=== PATIENT | female | born 1950 | race Caucasian/White ===

== ENCOUNTER → 2016-10-17 | Outpatient (CLI) | payer MEDICARE ==
[~2016-10-17] MED LIST: ACET-1757 PO; ALLO300T PO; ALPR-475 PO; ASPI-496 PO; ATOR10TA PO; AZIT500T PO; BUDE10.2 XX; CARV3.1212 PO; CARV3.122 PO; CEFU500T PO; CITA40TA5 PO; DIAZ2TAB PO; FURO40TA6 PO; FURO80TA3 PO; GABA600T2 PO; GABA800T2 PO; HUM100VI6 SC; IPRA4AER XX; LEVO750T26 PO; LEVO75TA5 PO; LISI2.5T PO; LISI5TAB7 PO; MECL-85 PO; METF500T4 PO; METO2.5T PO; METO25TA91 PO; MONT10TA6 PO; POTA20TA91 PO; PRED10TA PO; PRED20TA PO; SPIR25TA PO; [UNRECOGNIZED DRUG - REMARK]
== END | disposition home or self-care (01) ==
LOC: CVU 12:25
PROVIDERS: ATTEND Nurse Practitioner
DX: R60.0 Localized edema (principal); M79.605 Pain in left leg; E11.9 Type 2 diabetes mellitus without complications; Z86.69 Personal history of other diseases of the nervous system and sense organs
CPT/HCPCS: 93970

== ENCOUNTER 2016-11-01 16:07 | Inpatient (IN) | payer MEDICARE ==
[~2016-11-01] VITALS: Ht 170.2 cm; Wt 131.6 kg
[2016-11-01] MEDS ORDERED: SACU1TAB7 PO (16:31)
[2016-11-01] MEDS ORDERED: MORPHINE SULFATE 4 MG/ML, 1ML ONE ×2 (16:56→18:55)
[2016-11-01] MEDS ORDERED: METOCLOPRAMIDE 5 MG/ML, 2ML ONE (16:56)
[2016-11-01] MEDS ORDERED: METOCLOPRAMIDE 5 MG/ML, 2ML IVPush ONE (17:00)
[2016-11-01] MEDS ORDERED: morphine SULFATE 10 MG/ML, 1ML IVPush ONE ×2 (17:00→19:00)
[2016-11-01] MEDS ORDERED: OXYcodone/APAP 10/325MG TABLET ONE (18:55)
[2016-11-01] MEDS ORDERED: OXYcodone/APAP 10/325MG TABLET PO ONE (19:00)
[2016-11-01 19:21] LABS: BLOOD UREA NITROGEN 22 mg/dL (7-18)
[2016-11-01 19:28] LABS: IS PT STATUS REG ER OR PRE ER? YES
[2016-11-01] MEDS ORDERED: TRAZODONE 50MG TABLET PO PRN (20:00)
[2016-11-01] MEDS ORDERED: LABETALOL 5MG/ML, 20ML IV PRN (20:00)
[2016-11-01] MEDS ORDERED: ACETAMINOPHEN 325 MG TABLET PO PRN (20:00)
[2016-11-01] MEDS ORDERED: BISACODYL 10 MG SUPP PR PRN (20:00)
[2016-11-01] MEDS ORDERED: POLYETHYLENE GLYCOL 17 GM PACKET PO PRN (20:00)
[2016-11-01] MEDS ORDERED: DIAZEPAM 2 MG TABLET PO PRN (20:00)
[2016-11-01] MEDS ORDERED: DOCUSATE 100 MG CAPSULE PO PRN (20:00)
[2016-11-01] MEDS ORDERED: ENOXAPARIN 40 MG/0.4 ML ONE (20:24)
[2016-11-01] MEDS: ENOXAPARIN 40 MG/0.4 ML SQ SCH (20:26)
[2016-11-01 20:49] VITALS: BP 103/69
[2016-11-01] MEDS ORDERED: VALSARTAN PO SCH (21:00)
[2016-11-01] MEDS ORDERED: SACUBITRIL PO SCH (21:00)
[2016-11-01] MEDS: GABAPENTIN 400 MG CAPSULE PO SCH (21:36)
[2016-11-01] MEDS: ATORVASTATIN 10 MG TABLET PO SCH (21:36)
[2016-11-01] MEDS: INSULIN ASPART 100 UNITS/ML, PEN SQ-INSULIN SCH (22:38)
[2016-11-02] MEDS: ONDANSETRON 2MG/ML, 2ML IVPush PRN ×3 (00:36→14:40)
[2016-11-02] MEDS: HYDROcodone/APAP 5/325 TABLET PO PRN ×3 (00:37→20:30)
[2016-11-02 03:03] VITALS: BP 113/75
[2016-11-02] MEDS: CARVEDILOL 3.125 MG TABLET PO SCH ×2 (06:00→17:17)
[2016-11-02] MEDS: INSULIN ASPART 100 UNITS/ML, PEN SQ-INSULIN SCH ×4 (07:00→20:37)
[2016-11-02] MEDS: LEVOTHYROXINE 75 MCG TABLET PO SCH (07:37)
[2016-11-02 08:04] VITALS: BP 95/56
[2016-11-02] MEDS: ALLOPURINOL 300 MG TABLET PO SCH (08:19)
[2016-11-02] MEDS: SPIRONOLACTONE 25 MG TABLET PO SCH (08:19)
[2016-11-02] MEDS: ASPIRIN 81 MG TABLET EC PO SCH (08:20)
[2016-11-02] MEDS: GABAPENTIN 400 MG CAPSULE PO SCH ×3 (08:20→20:19)
[2016-11-02] MEDS ORDERED: DIAZEPAM 2 MG TABLET PO PRN (09:00)
[2016-11-02] MEDS: VALSARTAN PO SCH ×2 (09:00→20:48)
[2016-11-02] MEDS: SACUBITRIL PO SCH ×2 (09:00→20:48)
[2016-11-02] MEDS ORDERED: FUROSEMIDE 40 MG TABLET PO SCH (09:00)
[2016-11-02 12:27] VITALS: BP 112/70
[2016-11-02 18:43] VITALS: BP 106/67
[2016-11-02] MEDS: ENOXAPARIN 40 MG/0.4 ML SQ SCH (20:18)
[2016-11-02] MEDS: ATORVASTATIN 10 MG TABLET PO SCH (20:19)
[2016-11-03 03:42] VITALS: BP 124/74
[2016-11-03] MEDS: HYDROcodone/APAP 5/325 TABLET PO PRN ×3 (03:53→16:55)
[2016-11-03 05:07] LABS: BLOOD UREA NITROGEN 17 mg/dL (7-18)
[2016-11-03] MEDS: CARVEDILOL 3.125 MG TABLET PO SCH ×2 (05:22→18:07)
[2016-11-03] MEDS: LEVOTHYROXINE 75 MCG TABLET PO SCH (05:23)
[2016-11-03] MEDS: INSULIN ASPART 100 UNITS/ML, PEN SQ-INSULIN SCH ×4 (07:00→21:00)
[2016-11-03 07:08] VITALS: BP 116/74
[2016-11-03] MEDS: ALLOPURINOL 300 MG TABLET PO SCH (08:56)
[2016-11-03] MEDS: SPIRONOLACTONE 25 MG TABLET PO SCH (08:56)
[2016-11-03] MEDS: GABAPENTIN 400 MG CAPSULE PO SCH ×3 (08:56→22:18)
[2016-11-03] MEDS: ASPIRIN 81 MG TABLET EC PO SCH (08:56)
[2016-11-03] MEDS: VALSARTAN PO SCH ×2 (08:57→21:00)
[2016-11-03] MEDS: SACUBITRIL PO SCH ×2 (08:57→21:00)
[2016-11-03 13:35] VITALS: BP 115/83
[2016-11-03 20:25] VITALS: BP 128/74
[2016-11-03] MEDS: ENOXAPARIN 40 MG/0.4 ML SQ SCH (22:18)
[2016-11-03] MEDS: ATORVASTATIN 10 MG TABLET PO SCH (22:18)
[2016-11-04] MEDS: HYDROcodone/APAP 5/325 TABLET PO PRN (00:46)
[2016-11-04 02:55] VITALS: BP 112/68
[2016-11-04] MEDS: LEVOTHYROXINE 75 MCG TABLET PO SCH (05:41)
[2016-11-04] MEDS: CARVEDILOL 3.125 MG TABLET PO SCH ×2 (05:42→17:27)
[2016-11-04 06:00] VITALS: BP 107/70
[2016-11-04 06:47] VITALS: BP 112/74
[2016-11-04] MEDS: INSULIN ASPART 100 UNITS/ML, PEN SQ-INSULIN SCH ×3 (07:00→16:00)
[2016-11-04] MEDS: VALSARTAN PO SCH (08:34)
[2016-11-04] MEDS: SACUBITRIL PO SCH (08:34)
[2016-11-04] MEDS: GABAPENTIN 400 MG CAPSULE PO SCH ×2 (09:38→16:35)
[2016-11-04] MEDS: ALLOPURINOL 300 MG TABLET PO SCH (09:38)
[2016-11-04] MEDS: ASPIRIN 81 MG TABLET EC PO SCH (09:38)
[2016-11-04] MEDS: SPIRONOLACTONE 25 MG TABLET PO SCH (09:38)
[2016-11-04] MEDS ORDERED: OXYcodone IR 5MG TABLET PO PRN (13:00)
[2016-11-04 13:25] VITALS: BP 126/70
[2016-11-04] MEDS ORDERED: LEVOFLOXACIN/PMX 750MG/150ML 150 ML IV SCH (14:30)
[2016-11-04 14:43] LABS: PATH.CAST-FLAG NOT PRESENT; SPERM-FLAG NOT PRESENT; SRC-FLAG NOT PRESENT; XTAL-FLAG NOT PRESENT; YLC-FLAG NOT PRESENT
[2016-11-04] MEDS ORDERED: LEVO750T6 PO (15:04)
[2016-11-04] MEDS ORDERED: INSU100V8 SQ (15:12)
[2016-11-04] MEDS ORDERED: DIAZ2TAB3 PO (15:13)
[2016-11-04] MEDS ORDERED: LEVOFLOXACIN 750 MG TABLET PO SCH (15:30)
== END 2016-11-04 19:00 | DRG 543 ==
LOC: ED 17:50 → EDIP 19:40 → 3NW 20:40
PROVIDERS: ADMIT Internal Medicine; ATTEND Internal Medicine
DX: M80.021A Age-related osteoporosis with current pathological fracture, right humerus, initial encounter for fracture (principal); S42.201A Unspecified fracture of upper end of right humerus, initial encounter for closed fracture; I50.42 Chronic combined systolic (congestive) and diastolic (congestive) heart failure; Z68.42 Body mass index [BMI] 45.0-49.9, adult; E44.1 Mild protein-calorie malnutrition; N39.0 Urinary tract infection, site not specified; I25.10 Atherosclerotic heart disease of native coronary artery without angina pectoris; I44.7 Left bundle-branch block, unspecified; S53.104A Unspecified dislocation of right ulnohumeral joint, initial encounter; I11.0 Hypertensive heart disease with heart failure; E78.5 Hyperlipidemia, unspecified; M10.9 Gout, unspecified; F41.9 Anxiety disorder, unspecified; E03.9 Hypothyroidism, unspecified; E11.9 Type 2 diabetes mellitus without complications; J44.9 Chronic obstructive pulmonary disease, unspecified; E66.01 Morbid (severe) obesity due to excess calories; Z66 Do not resuscitate; W01.0XXA Fall on same level from slipping, tripping and stumbling without subsequent striking against object, initial encounter; Z79.4 Long term (current) use of insulin; Z88.0 Allergy status to penicillin; Z90.710 Acquired absence of both cervix and uterus; Y93.89 Activity, other specified; Y92.89 Other specified places as the place of occurrence of the external cause; Y99.8 Other external cause status; Z95.810 Presence of automatic (implantable) cardiac defibrillator; Z82.3 Family history of stroke; Z82.49 Family history of ischemic heart disease and other diseases of the circulatory system; Z87.891 Personal history of nicotine dependence; S51.001A Unspecified open wound of right elbow, initial encounter
CPT/HCPCS: 36415; 71010; 80048; 81001; 82040; 82962; 83036; 84484; 85025; 85610; 87077; 87086; 87186; 96374; 96375; 96376; J1650; J1815; J2405; J2270; J2765

== ENCOUNTER 2016-12-22 20:08 | Inpatient (IN) | payer MEDICARE ==
[~2016-12-22] VITALS: Ht 170.2 cm; Wt 130.0 kg
[~2016-12-22 20:08] MED LIST changes: +DIAZ2TAB3 PO; +INSU100V8 SQ; +LEVO750T6 PO; +SACU1TAB7 PO
[2016-12-22] MEDS ORDERED: SODIUM CHLORIDE 0.9% 1,000ML IVBOLUS ONE ×2 (20:30→21:30)
[2016-12-22] MEDS ORDERED: SODIUM CHLORIDE FLUSH 10ML SYR IVF ONE (20:30)
[2016-12-22 21:05] LABS: ASPARTATE AMINO TRANSFERASE 12 U/L (15-37); BLOOD UREA NITROGEN 89 mg/dL (7-18)
[2016-12-22] MEDS ORDERED: INSULIN REGULAR 100 UNITS/ML, 3ML VIAL IVPush ONE (21:30)
[2016-12-22] MEDS ORDERED: CALCIUM GLUCONATE 4.6 MEQ in SODIUM CHLORIDE 0.9% 50 ML IV ONE (21:30)
[2016-12-22] MEDS ORDERED: ALBUTEROL 0.5%, 20ML NPPB ONE (21:30)
[2016-12-22] MEDS ORDERED: DEXTROSE 50%, 50ML SYRINGE IVPush ONE (21:30)
[2016-12-22] MEDS ORDERED: CEFTRIAXONE PMX 2GM/50ML 50 ML ONE (21:31)
[2016-12-22] MEDS ORDERED: INSULIN SINGLE DOSE, ER SQ-INSULIN ONE (21:31)
[2016-12-22] MEDS ORDERED: DEXTROSE 50%, 50ML VIAL ONE (21:31)
[2016-12-22] MEDS ORDERED: ALBUTEROL 0.5%, 20ML ONE (21:38)
[2016-12-22] MEDS ORDERED: CEFTRIAXONE PMX 2GM/50ML 50 ML IVPB ONE (22:00)
[2016-12-22] MEDS ORDERED: NOREPINEPHRINE 4 MG in SODIUM CHLORIDE 0.9% 246 ML IV PRN (23:00)
[2016-12-23] MEDS ORDERED: DOCUSATE 100 MG CAPSULE PO PRN (02:30)
[2016-12-23] MEDS ORDERED: TRAZODONE 50MG TABLET PO PRN (02:30)
[2016-12-23] MEDS ORDERED: BISACODYL 10 MG SUPP PR PRN (02:30)
[2016-12-23] MEDS ORDERED: hydrALAzine 20 MG/ML, 1ML IVPush PRN (02:30)
[2016-12-23] MEDS ORDERED: POLYETHYLENE GLYCOL 17 GM PACKET PO PRN (02:30)
[2016-12-23] MEDS ORDERED: VASOPRESSIN 100 UNIT in SODIUM CHLORIDE 0.9% 495 ML IV PRN (03:00)
[2016-12-23] MEDS: HEPARIN 5,000 UNITS/ML, 1ML SQ SCH ×3 (03:04→18:21)
[2016-12-23 03:15] LABS: ASPARTATE AMINO TRANSFERASE 30 U/L (15-37); BLOOD UREA NITROGEN 90 mg/dL (7-18)
[2016-12-23 03:21] LABS: IS PT STATUS REG ER OR PRE ER? NO
[2016-12-23] MEDS ORDERED: INSULIN ASPART 100 UNITS/ML, PEN SQ-INSULIN ONE (03:30)
[2016-12-23] MEDS ORDERED: SODIUM CHLORIDE 0.9% 1,000ML IVBOLUS ONE ×2 (03:30→04:30)
[2016-12-23] MEDS ORDERED: METRONIDAZOLE PMX 500MG/100ML 100 ML IV SCH (03:30)
[2016-12-23] MEDS ORDERED: DEXTROSE 50%, 50ML SYRINGE IVPush ONE (03:30)
[2016-12-23] MEDS: NOREPINEPHRINE 8 MG in SODIUM CHLORIDE 0.9% 242 ML IV PRN ×4 (03:43→18:26)
[2016-12-23 04:00] VITALS: BP 122/106
[2016-12-23] MEDS ORDERED: INSULIN REGULAR 100 UNITS/ML, 3ML VIAL IVPush ONE (04:30)
[2016-12-23] MEDS: INSULIN ASPART 100 UNITS/ML, PEN SQ-INSULIN SCH ×4 (06:42→20:17)
[2016-12-23] MEDS: ACETAMINOPHEN 325 MG TABLET PO PRN ×2 (07:45→23:44)
[2016-12-23] MEDS: LEVOTHYROXINE 75 MCG TABLET PO SCH (07:45)
[2016-12-23 09:03] LABS: BLOOD UREA NITROGEN 79 mg/dL (7-18)
[2016-12-23 09:08] LABS: IS PT STATUS REG ER OR PRE ER? NO
[2016-12-23] MEDS: GABAPENTIN 400 MG CAPSULE PO SCH ×3 (10:05→21:04)
[2016-12-23] MEDS: MEROPENEM 500 MG in SODIUM CHLORIDE 0.9% 100 ML IV SCH ×2 (10:06→21:04)
[2016-12-23] MEDS: ALLOPURINOL 300 MG TABLET PO SCH (10:06)
[2016-12-23] MEDS: ASPIRIN 81 MG TABLET EC PO SCH (10:06)
[2016-12-23] MEDS: ATORVASTATIN 10 MG TABLET PO SCH (21:04)
[2016-12-24] MEDS: NOREPINEPHRINE 8 MG in SODIUM CHLORIDE 0.9% 242 ML IV PRN (01:30)
[2016-12-24] MEDS ORDERED: CEFTRIAXONE PMX 2GM/50ML 50 ML IVPB SCH (02:00)
[2016-12-24] MEDS: HEPARIN 5,000 UNITS/ML, 1ML SQ SCH ×3 (03:30→18:40)
[2016-12-24 04:00] VITALS: BP 119/56
[2016-12-24] MEDS: LEVOTHYROXINE 75 MCG TABLET PO SCH (05:00)
[2016-12-24 05:18] LABS: BLOOD UREA NITROGEN 58 mg/dL (7-18)
[2016-12-24 05:24] LABS: ASPARTATE AMINO TRANSFERASE 33 U/L (15-37)
[2016-12-24] MEDS: INSULIN ASPART 100 UNITS/ML, PEN SQ-INSULIN SCH ×4 (07:00→21:00)
[2016-12-24] MEDS: MEROPENEM 500 MG in SODIUM CHLORIDE 0.9% 100 ML IV SCH (08:24)
[2016-12-24] MEDS: ACETAMINOPHEN 325 MG TABLET PO PRN ×2 (08:25→17:12)
[2016-12-24] MEDS: GABAPENTIN 400 MG CAPSULE PO SCH ×3 (08:25→20:58)
[2016-12-24] MEDS: ASPIRIN 81 MG TABLET EC PO SCH (08:25)
[2016-12-24] MEDS: ALLOPURINOL 300 MG TABLET PO SCH (08:25)
[2016-12-24] MEDS: MEROPENEM 1 GM in SODIUM CHLORIDE 0.9% 100 ML IV SCH (15:55)
[2016-12-24] MEDS ORDERED: ONDANSETRON 2MG/ML, 2ML ONE (17:09)
[2016-12-24] MEDS ORDERED: ONDANSETRON 2MG/ML, 2ML IVPush PRN (17:30)
[2016-12-24] MEDS: ATORVASTATIN 10 MG TABLET PO SCH (20:58)
[2016-12-25] MEDS: ACETAMINOPHEN 325 MG TABLET PO PRN ×2 (00:13→06:29)
[2016-12-25] MEDS: HEPARIN 5,000 UNITS/ML, 1ML SQ SCH ×3 (02:08→20:52)
[2016-12-25] MEDS: MEROPENEM 1 GM in SODIUM CHLORIDE 0.9% 100 ML IV SCH ×2 (04:43→16:45)
[2016-12-25 05:17] VITALS: BP 118/84
[2016-12-25 06:05] LABS: ASPARTATE AMINO TRANSFERASE 43 U/L (15-37); BLOOD UREA NITROGEN 38 mg/dL (7-18)
[2016-12-25] MEDS: INSULIN ASPART 100 UNITS/ML, PEN SQ-INSULIN SCH ×4 (06:25→20:40)
[2016-12-25] MEDS: LEVOTHYROXINE 75 MCG TABLET PO SCH (06:29)
[2016-12-25] MEDS: GABAPENTIN 400 MG CAPSULE PO SCH ×3 (09:44→20:52)
[2016-12-25] MEDS: ASPIRIN 81 MG TABLET EC PO SCH (09:44)
[2016-12-25] MEDS: ALLOPURINOL 300 MG TABLET PO SCH (09:44)
[2016-12-25 16:46] VITALS: BP 114/72
[2016-12-25 17:40] VITALS: BP 120/76
[2016-12-25] MEDS: ATORVASTATIN 10 MG TABLET PO SCH (20:52)
[2016-12-25 22:15] VITALS: BP 104/63
[2016-12-26 02:00] VITALS: BP 100/64
[2016-12-26] MEDS: MEROPENEM 1 GM in SODIUM CHLORIDE 0.9% 100 ML IV SCH ×2 (05:18→16:00)
[2016-12-26] MEDS: HEPARIN 5,000 UNITS/ML, 1ML SQ SCH ×3 (05:19→22:06)
[2016-12-26] MEDS: LEVOTHYROXINE 75 MCG TABLET PO SCH (05:19)
[2016-12-26 05:47] LABS: ASPARTATE AMINO TRANSFERASE 66 U/L (15-37); BLOOD UREA NITROGEN 30 mg/dL (7-18)
[2016-12-26] MEDS: INSULIN ASPART 100 UNITS/ML, PEN SQ-INSULIN SCH ×4 (07:00→20:29)
[2016-12-26 08:33] VITALS: BP 110/72
[2016-12-26] MEDS: ASPIRIN 81 MG TABLET EC PO SCH (08:33)
[2016-12-26] MEDS: ALLOPURINOL 300 MG TABLET PO SCH (08:33)
[2016-12-26] MEDS: GABAPENTIN 400 MG CAPSULE PO SCH ×3 (08:33→22:07)
[2016-12-26 13:20] VITALS: BP 98/47
[2016-12-26] MEDS ORDERED: MEROPENEM 1 GM in SODIUM CHLORIDE 0.9% 100 ML IV SCH (16:00)
[2016-12-26 20:00] VITALS: BP 109/75
[2016-12-26] MEDS: ACETAMINOPHEN 325 MG TABLET PO PRN (20:49)
[2016-12-26] MEDS: ATORVASTATIN 10 MG TABLET PO SCH (22:07)
[2016-12-27] MEDS: MEROPENEM 1 GM in SODIUM CHLORIDE 0.9% 100 ML IV SCH ×3 (00:32→16:04)
[2016-12-27 02:00] VITALS: BP 111/70
[2016-12-27] MEDS: ACETAMINOPHEN 325 MG TABLET PO PRN ×4 (04:37→22:40)
[2016-12-27] MEDS: HEPARIN 5,000 UNITS/ML, 1ML SQ SCH ×2 (04:38→16:04)
[2016-12-27] MEDS: LEVOTHYROXINE 75 MCG TABLET PO SCH (06:42)
[2016-12-27 06:57] LABS: BLOOD UREA NITROGEN 24 mg/dL (7-18)
[2016-12-27] MEDS: INSULIN ASPART 100 UNITS/ML, PEN SQ-INSULIN SCH ×4 (07:00→20:14)
[2016-12-27 07:01] LABS: ASPARTATE AMINO TRANSFERASE 59 U/L (15-37)
[2016-12-27] MEDS: ASPIRIN 81 MG TABLET EC PO SCH (08:39)
[2016-12-27] MEDS: ALLOPURINOL 300 MG TABLET PO SCH (08:39)
[2016-12-27] MEDS: GABAPENTIN 400 MG CAPSULE PO SCH ×3 (08:39→20:28)
[2016-12-27 13:07] VITALS: BP 125/78
[2016-12-27 20:00] VITALS: BP 102/70
[2016-12-27] MEDS: ATORVASTATIN 10 MG TABLET PO SCH (20:28)
[2016-12-28] MEDS: MEROPENEM 1 GM in SODIUM CHLORIDE 0.9% 100 ML IV SCH ×3 (00:53→17:47)
[2016-12-28 02:00] VITALS: BP 119/79
[2016-12-28] MEDS: LEVOTHYROXINE 75 MCG TABLET PO SCH (06:06)
[2016-12-28] MEDS: ACETAMINOPHEN 325 MG TABLET PO PRN ×3 (06:14→21:23)
[2016-12-28] MEDS: INSULIN ASPART 100 UNITS/ML, PEN SQ-INSULIN SCH ×4 (07:00→20:37)
[2016-12-28 07:08] VITALS: BP 105/67
[2016-12-28] MEDS: GABAPENTIN 400 MG CAPSULE PO SCH ×3 (09:34→21:23)
[2016-12-28] MEDS: ALLOPURINOL 300 MG TABLET PO SCH (09:34)
[2016-12-28] MEDS: HEPARIN 5,000 UNITS/ML, 1ML SQ SCH ×3 (09:34→17:47)
[2016-12-28] MEDS: ASPIRIN 81 MG TABLET EC PO SCH (09:34)
[2016-12-28 13:23] VITALS: BP 123/64
[2016-12-28 20:13] VITALS: BP 108/84
[2016-12-28] MEDS: ATORVASTATIN 10 MG TABLET PO SCH (21:23)
[2016-12-29] MEDS: MEROPENEM 1 GM in SODIUM CHLORIDE 0.9% 100 ML IV SCH ×3 (00:38→16:37)
[2016-12-29 02:00] VITALS: BP 113/69
[2016-12-29 06:20] LABS: BLOOD UREA NITROGEN 12 mg/dL (7-18)
[2016-12-29] MEDS: LEVOTHYROXINE 75 MCG TABLET PO SCH (06:35)
[2016-12-29] MEDS: INSULIN ASPART 100 UNITS/ML, PEN SQ-INSULIN SCH ×4 (07:00→21:00)
[2016-12-29 07:25] VITALS: BP 117/69
[2016-12-29] MEDS: HEPARIN 5,000 UNITS/ML, 1ML SQ SCH ×3 (08:22→16:38)
[2016-12-29] MEDS: ASPIRIN 81 MG TABLET EC PO SCH (08:23)
[2016-12-29] MEDS: GABAPENTIN 400 MG CAPSULE PO SCH ×3 (08:23→21:16)
[2016-12-29] MEDS: ALLOPURINOL 300 MG TABLET PO SCH (08:23)
[2016-12-29] MEDS ORDERED: POTASSIUM CHLORIDE 20 MEQ TAB.ER.PRT PO ONE (10:30)
[2016-12-29 13:13] VITALS: BP 144/93
[2016-12-29 19:47] VITALS: BP 112/80
[2016-12-29] MEDS: ATORVASTATIN 10 MG TABLET PO SCH (21:16)
[2016-12-29] MEDS: ACETAMINOPHEN 325 MG TABLET PO PRN (21:16)
[2016-12-30] MEDS: HEPARIN 5,000 UNITS/ML, 1ML SQ SCH ×3 (00:38→16:00)
[2016-12-30] MEDS: MEROPENEM 1 GM in SODIUM CHLORIDE 0.9% 100 ML IV SCH ×3 (00:38→17:07)
[2016-12-30 01:50] VITALS: BP 106/69
[2016-12-30] MEDS: LEVOTHYROXINE 75 MCG TABLET PO SCH (04:32)
[2016-12-30] MEDS: ACETAMINOPHEN 325 MG TABLET PO PRN ×2 (04:38→12:16)
[2016-12-30 05:32] LABS: BLOOD UREA NITROGEN 10 mg/dL (7-18)
[2016-12-30] MEDS: INSULIN ASPART 100 UNITS/ML, PEN SQ-INSULIN SCH ×3 (07:00→16:00)
[2016-12-30 07:16] VITALS: BP 108/71
[2016-12-30] MEDS: ASPIRIN 81 MG TABLET EC PO SCH (08:08)
[2016-12-30] MEDS: ALLOPURINOL 300 MG TABLET PO SCH (08:08)
[2016-12-30] MEDS: GABAPENTIN 400 MG CAPSULE PO SCH ×2 (08:08→17:07)
[2016-12-30 15:10] VITALS: BP 113/76
[2016-12-30] MEDS ORDERED: FURO20TA3 PO (16:51)
[2016-12-30] MEDS ORDERED: INSU100C5 SQ-INSULIN (16:52)
[2016-12-30] MEDS ORDERED: HEPA100D36 SQ (16:55)
[2016-12-30] MEDS ORDERED: MERO1PIG IV (16:57)
[2016-12-30] MEDS ORDERED: ACET-1757 PO (16:58)
[2016-12-30] MEDS ORDERED: BISA10SU2 PR (17:00)
[2016-12-30] MEDS ORDERED: DOCU100C8 PO (17:01)
[2016-12-30] MEDS ORDERED: ONDA4TAB13 SL (17:02)
[2016-12-30] MEDS ORDERED: POLY17PO5 PO (17:03)
== END 2016-12-30 18:00 | DRG 871 ==
LOC: ED 21:18 → EDIP 12-23 00:06 → ICU 12-23 01:37 → 4EST 12-25 17:28
PROVIDERS: ADMIT Internal Medicine; ATTEND Internal Medicine
PROC: 0T9B70Z Drainage of Bladder with Drainage Device, Via Natural or Artificial Opening (ICD-10-PCS; 2016-12-22)
PROC: 02HV33Z Insertion of Infusion Device into Superior Vena Cava, Percutaneous Approach (ICD-10-PCS; principal; 2016-12-30)
PROC: B548ZZA Ultrasonography of Superior Vena Cava, Guidance (ICD-10-PCS; 2016-12-30)
DX: A41.59 Other Gram-negative sepsis (principal); R65.21 Severe sepsis with septic shock; G92 Toxic encephalopathy; J96.21 Acute and chronic respiratory failure with hypoxia; I50.43 Acute on chronic combined systolic (congestive) and diastolic (congestive) heart failure; N17.0 Acute kidney failure with tubular necrosis; E87.1 Hypo-osmolality and hyponatremia; N12 Tubulo-interstitial nephritis, not specified as acute or chronic; S42.201A Unspecified fracture of upper end of right humerus, initial encounter for closed fracture; E87.5 Hyperkalemia; E03.9 Hypothyroidism, unspecified; E11.9 Type 2 diabetes mellitus without complications; D64.9 Anemia, unspecified; E78.5 Hyperlipidemia, unspecified; H54.7 Unspecified visual loss; I11.0 Hypertensive heart disease with heart failure; I25.10 Atherosclerotic heart disease of native coronary artery without angina pectoris; J44.9 Chronic obstructive pulmonary disease, unspecified; M10.9 Gout, unspecified; W01.0XXA Fall on same level from slipping, tripping and stumbling without subsequent striking against object, initial encounter; Y93.89 Activity, other specified; Y92.89 Other specified places as the place of occurrence of the external cause; Z79.4 Long term (current) use of insulin; Z79.899 Other long term (current) drug therapy; Z82.3 Family history of stroke; Z87.440 Personal history of urinary (tract) infections; Z87.891 Personal history of nicotine dependence; Z95.810 Presence of automatic (implantable) cardiac defibrillator; Z90.49 Acquired absence of other specified parts of digestive tract; Z90.710 Acquired absence of both cervix and uterus; Z98.49 Cataract extraction status, unspecified eye; Z88.0 Allergy status to penicillin; Z79.82 Long term (current) use of aspirin; Z82.61 Family history of arthritis; Z82.49 Family history of ischemic heart disease and other diseases of the circulatory system; R42 Dizziness and giddiness
CPT/HCPCS: 36415; 36556; 36569; 70450; 71010; 76937; 77001; 80048; 80053; 81001; 82436; 82570; 82962; 83036; 83605; 83735; 83880; 84133; 84145; 84300; 84439; 84443; 84484; 85025; 85610; 85730; 87040; 87077; 87081; 87086; 87186; 87324; 93005; 94644; 96361; 96365; 96368; 96375; J0610; J0696; J1644; J1815; J2185; J2405; C1751; J7030; J7040; J7050

== ENCOUNTER 2017-01-18 11:10 | Inpatient (IN) | payer MEDICARE ==
[~2017-01-18] VITALS: Ht 170.2 cm; Wt 129.9 kg
[~2017-01-18 11:10] MED LIST changes: +BISA10SU2 PR; +DOCU100C8 PO; +FURO20TA3 PO; +HEPA100D36 SQ; +INSU100C5 SQ-INSULIN; +MERO1PIG IV; +ONDA4TAB13 SL; +POLY17PO5 PO
[2017-01-18] MEDS ORDERED: METF500T4 PO (11:45)
[2017-01-18] MEDS ORDERED: HYDR-3240 PO (11:45)
[2017-01-18 12:03] LABS: ASPARTATE AMINO TRANSFERASE 20 U/L (15-37); BLOOD UREA NITROGEN 7 mg/dL (7-18)
[2017-01-18 12:10] LABS: IS PT STATUS REG ER OR PRE ER? YES
[2017-01-18] MEDS ORDERED: INSULIN DETEMIR 100 UNITS/ML, PEN SQ-INSULIN SCH (14:00)
[2017-01-18 14:26] VITALS: BP 117/77
[2017-01-18] MEDS ORDERED: ONDANSETRON 2MG/ML, 2ML IVPush PRN (14:30)
[2017-01-18] MEDS ORDERED: HYDROcodone/APAP 5/325 TABLET PO PRN (14:30)
[2017-01-18] MEDS ORDERED: morphine SULFATE 10 MG/ML, 1ML IVPush PRN (14:30)
[2017-01-18] MEDS ORDERED: ACETAMINOPHEN 325 MG TABLET PO PRN (14:30)
[2017-01-18] MEDS ORDERED: hydrALAzine 20 MG/ML, 1ML IVPush PRN (14:30)
[2017-01-18] MEDS: INSULIN ASPART 100 UNITS/ML, PEN SQ-INSULIN SCH ×2 (15:19→21:00)
[2017-01-18] MEDS: POTASSIUM CHLORIDE 20 MEQ TAB.ER.PRT PO SCH ×3 (15:25→21:08)
[2017-01-18] MEDS: HYDROcodone/APAP 5/325 TABLET PO PRN (16:50)
[2017-01-18] MEDS: GABAPENTIN 400 MG CAPSULE PO SCH ×2 (16:50→21:08)
[2017-01-18] MEDS: CEFTRIAXONE PMX 2GM/50ML 50 ML IV SCH (16:50)
[2017-01-18 17:18] LABS: PATH.CAST-FLAG NOT PRESENT; SPERM-FLAG NOT PRESENT; SRC-FLAG NOT PRESENT; XTAL-FLAG NOT PRESENT; YLC-FLAG NOT PRESENT
[2017-01-18 18:59] VITALS: BP 126/70
[2017-01-18] MEDS: ATORVASTATIN 10 MG TABLET PO SCH (21:08)
[2017-01-18] MEDS: DOCUSATE 100 MG CAPSULE PO SCH (21:08)
[2017-01-18] MEDS: INSULIN DETEMIR 100 UNITS/ML, PEN SQ-INSULIN SCH (21:10)
[2017-01-19 02:02] VITALS: BP 125/72
[2017-01-19 06:23] LABS: ASPARTATE AMINO TRANSFERASE 17 U/L (15-37); BLOOD UREA NITROGEN 9 mg/dL (7-18)
[2017-01-19] MEDS: LEVOTHYROXINE 88 MCG TABLET PO SCH (06:27)
[2017-01-19] MEDS: INSULIN ASPART 100 UNITS/ML, PEN SQ-INSULIN SCH ×4 (07:00→20:07)
[2017-01-19 08:00] VITALS: BP 108/73
[2017-01-19] MEDS: BISACODYL 10 MG SUPP PR SCH (09:00)
[2017-01-19] MEDS: POLYETHYLENE GLYCOL 17 GM PACKET PO SCH (09:00)
[2017-01-19] MEDS: ASPIRIN 81 MG TABLET EC PO SCH (09:29)
[2017-01-19] MEDS: FUROSEMIDE 20 MG TABLET PO SCH (09:30)
[2017-01-19] MEDS: POTASSIUM CHLORIDE 20 MEQ TAB.ER.PRT PO SCH ×3 (09:30→13:47)
[2017-01-19] MEDS: DOCUSATE 100 MG CAPSULE PO SCH ×2 (09:30→20:08)
[2017-01-19] MEDS: GABAPENTIN 400 MG CAPSULE PO SCH ×3 (09:30→20:08)
[2017-01-19] MEDS: ENOXAPARIN 40 MG/0.4 ML SQ SCH (09:30)
[2017-01-19] MEDS: ALLOPURINOL 300 MG TABLET PO SCH (09:30)
[2017-01-19] MEDS: HYDROcodone/APAP 5/325 TABLET PO PRN (09:40)
[2017-01-19 10:51] VITALS: BP 121/71
[2017-01-19 16:13] VITALS: BP 120/75
[2017-01-19] MEDS: CEFTRIAXONE PMX 2GM/50ML 50 ML IV SCH (17:18)
[2017-01-19 19:11] VITALS: BP 120/75
[2017-01-19] MEDS: ATORVASTATIN 10 MG TABLET PO SCH (20:08)
[2017-01-19] MEDS: INSULIN DETEMIR 100 UNITS/ML, PEN SQ-INSULIN SCH (20:09)
[2017-01-20 02:31] VITALS: BP 119/75
[2017-01-20 05:52] LABS: BLOOD UREA NITROGEN 10 mg/dL (7-18)
[2017-01-20 05:57] LABS: ASPARTATE AMINO TRANSFERASE 18 U/L (15-37)
[2017-01-20] MEDS: INSULIN ASPART 100 UNITS/ML, PEN SQ-INSULIN SCH ×4 (07:00→22:04)
[2017-01-20 07:28] VITALS: BP 110/71
[2017-01-20] MEDS: LEVOTHYROXINE 88 MCG TABLET PO SCH (07:35)
[2017-01-20] MEDS: ALLOPURINOL 300 MG TABLET PO SCH (08:13)
[2017-01-20] MEDS: ASPIRIN 81 MG TABLET EC PO SCH (08:13)
[2017-01-20] MEDS: FUROSEMIDE 20 MG TABLET PO SCH (08:13)
[2017-01-20] MEDS: GABAPENTIN 400 MG CAPSULE PO SCH ×3 (08:13→22:04)
[2017-01-20] MEDS: BISACODYL 10 MG SUPP PR SCH (08:14)
[2017-01-20] MEDS: ENOXAPARIN 40 MG/0.4 ML SQ SCH (08:14)
[2017-01-20] MEDS: POLYETHYLENE GLYCOL 17 GM PACKET PO SCH (08:14)
[2017-01-20] MEDS: DOCUSATE 100 MG CAPSULE PO SCH ×2 (08:22→22:03)
[2017-01-20 12:48] VITALS: BP 120/73
[2017-01-20] MEDS: GUAIFENESIN ER 600 MG TABLET PO SCH ×2 (16:27→22:04)
[2017-01-20] MEDS: CEFTRIAXONE PMX 2GM/50ML 50 ML IV SCH (16:28)
[2017-01-20] MEDS ORDERED: MAGNESIUM SULFATE PMX 2GM/50ML 50 ML IV ONE (16:30)
[2017-01-20 19:08] VITALS: BP 145/87
[2017-01-20] MEDS: ATORVASTATIN 10 MG TABLET PO SCH (22:04)
[2017-01-20] MEDS: INSULIN DETEMIR 100 UNITS/ML, PEN SQ-INSULIN SCH (22:05)
[2017-01-21 01:10] VITALS: BP 141/82
[2017-01-21] MEDS: LEVOTHYROXINE 88 MCG TABLET PO SCH (05:38)
[2017-01-21 06:29] LABS: BLOOD UREA NITROGEN 7 mg/dL (7-18)
[2017-01-21 06:40] VITALS: BP 118/73
[2017-01-21] MEDS: INSULIN ASPART 100 UNITS/ML, PEN SQ-INSULIN SCH ×4 (08:36→21:02)
[2017-01-21] MEDS: GUAIFENESIN ER 600 MG TABLET PO SCH ×2 (08:37→20:53)
[2017-01-21] MEDS: POLYETHYLENE GLYCOL 17 GM PACKET PO SCH (08:37)
[2017-01-21] MEDS: ALLOPURINOL 300 MG TABLET PO SCH (08:38)
[2017-01-21] MEDS: GABAPENTIN 400 MG CAPSULE PO SCH ×3 (08:38→20:53)
[2017-01-21] MEDS: ENOXAPARIN 40 MG/0.4 ML SQ SCH (08:38)
[2017-01-21] MEDS: BISACODYL 10 MG SUPP PR SCH (08:38)
[2017-01-21] MEDS: DOCUSATE 100 MG CAPSULE PO SCH ×2 (08:38→20:53)
[2017-01-21] MEDS: ASPIRIN 81 MG TABLET EC PO SCH (08:38)
[2017-01-21] MEDS: FUROSEMIDE 20 MG TABLET PO SCH (08:38)
[2017-01-21 13:35] VITALS: BP 103/60
[2017-01-21] MEDS: CEFTRIAXONE PMX 2GM/50ML 50 ML IV SCH (16:35)
[2017-01-21 20:09] VITALS: BP 109/52
[2017-01-21] MEDS: ATORVASTATIN 10 MG TABLET PO SCH (20:53)
[2017-01-21] MEDS: INSULIN DETEMIR 100 UNITS/ML, PEN SQ-INSULIN SCH (21:03)
[2017-01-21] MEDS: NYSTATIN TOPICAL POWDER 15GM TP SCH (21:26)
[2017-01-22 02:27] VITALS: BP 107/67
[2017-01-22] MEDS: LEVOTHYROXINE 88 MCG TABLET PO SCH (06:16)
[2017-01-22 07:53] VITALS: BP 138/77
[2017-01-22] MEDS: INSULIN ASPART 100 UNITS/ML, PEN SQ-INSULIN SCH ×4 (08:00→21:10)
[2017-01-22] MEDS: GUAIFENESIN ER 600 MG TABLET PO SCH ×2 (08:22→21:06)
[2017-01-22] MEDS: ASPIRIN 81 MG TABLET EC PO SCH (08:22)
[2017-01-22] MEDS: FUROSEMIDE 20 MG TABLET PO SCH (08:23)
[2017-01-22] MEDS: POLYETHYLENE GLYCOL 17 GM PACKET PO SCH (08:23)
[2017-01-22] MEDS: GABAPENTIN 400 MG CAPSULE PO SCH ×3 (08:23→21:06)
[2017-01-22] MEDS: ALLOPURINOL 300 MG TABLET PO SCH (08:24)
[2017-01-22] MEDS: DOCUSATE 100 MG CAPSULE PO SCH ×2 (08:24→21:06)
[2017-01-22] MEDS: ENOXAPARIN 40 MG/0.4 ML SQ SCH (08:24)
[2017-01-22] MEDS: BISACODYL 10 MG SUPP PR SCH (09:00)
[2017-01-22] MEDS: NYSTATIN TOPICAL POWDER 15GM TP SCH ×2 (11:23→21:10)
[2017-01-22 13:43] VITALS: BP 110/75
[2017-01-22] MEDS: CEFTRIAXONE PMX 2GM/50ML 50 ML IV SCH (16:21)
[2017-01-22 20:20] VITALS: BP 115/77
[2017-01-22] MEDS: ATORVASTATIN 10 MG TABLET PO SCH (21:06)
[2017-01-22] MEDS: MAGNESIUM OXIDE 400 MG TABLET PO SCH (21:06)
[2017-01-22] MEDS: INSULIN DETEMIR 100 UNITS/ML, PEN SQ-INSULIN SCH (21:08)
[2017-01-23 02:30] VITALS: BP 128/78
[2017-01-23] MEDS: LEVOTHYROXINE 88 MCG TABLET PO SCH (05:58)
[2017-01-23 07:31] VITALS: BP 124/73
[2017-01-23] MEDS: DOCUSATE 100 MG CAPSULE PO SCH (08:55)
[2017-01-23] MEDS: POLYETHYLENE GLYCOL 17 GM PACKET PO SCH (08:55)
[2017-01-23] MEDS: BISACODYL 10 MG SUPP PR SCH (08:55)
[2017-01-23] MEDS: ALLOPURINOL 300 MG TABLET PO SCH (08:59)
[2017-01-23] MEDS: GABAPENTIN 400 MG CAPSULE PO SCH (09:00)
[2017-01-23] MEDS: FUROSEMIDE 20 MG TABLET PO SCH (09:00)
[2017-01-23] MEDS: NYSTATIN TOPICAL POWDER 15GM TP SCH (09:00)
[2017-01-23] MEDS: INSULIN ASPART 100 UNITS/ML, PEN SQ-INSULIN SCH (09:00)
[2017-01-23] MEDS: ASPIRIN 81 MG TABLET EC PO SCH (09:00)
[2017-01-23] MEDS: GUAIFENESIN ER 600 MG TABLET PO SCH (09:00)
[2017-01-23] MEDS: MAGNESIUM OXIDE 400 MG TABLET PO SCH (09:00)
[2017-01-23] MEDS: ENOXAPARIN 40 MG/0.4 ML SQ SCH (09:00)
[2017-01-23] MEDS ORDERED: CEFD300C37 PO (10:26)
[2017-01-23] MEDS ORDERED: MAGN400T26 PO (10:26)
[2017-01-23] MEDS ORDERED: NYST60PO TP (10:26)
[2017-01-23] MEDS ORDERED: POTA20PA PO (10:39)
[2017-01-23] MEDS ORDERED: LISI5TAB7 PO (10:59)
[2017-01-23] MEDS ORDERED: METO25TA91 PO (11:33)
[2017-01-23] MEDS ORDERED: SPIR25TA PO (11:33)
== END 2017-01-23 11:55 | disposition home health service (06) | DRG 872 ==
LOC: ED 12:10 → EDIP 12:32 → 5SO 14:20 → DCLOUNGE 01-23 11:01
PROVIDERS: ADMIT Hospitalist; ATTEND Internal Medicine
PROC: 4A02X4Z Measurement of Cardiac Electrical Activity, External Approach (ICD-10-PCS; principal; 2017-01-18)
DX: A41.9 Sepsis, unspecified organism (principal); I47.1 Supraventricular tachycardia; N39.0 Urinary tract infection, site not specified; I50.42 Chronic combined systolic (congestive) and diastolic (congestive) heart failure; I13.0 Hypertensive heart and chronic kidney disease with heart failure and stage 1 through stage 4 chronic kidney disease, or unspecified chronic kidney disease; E87.2 Acidosis; J96.11 Chronic respiratory failure with hypoxia; Z68.41 Body mass index [BMI] 40.0-44.9, adult; E87.6 Hypokalemia; E11.22 Type 2 diabetes mellitus with diabetic chronic kidney disease; E03.9 Hypothyroidism, unspecified; E66.01 Morbid (severe) obesity due to excess calories; E83.42 Hypomagnesemia; H54.42 Blindness, left eye, normal vision right eye; I25.10 Atherosclerotic heart disease of native coronary artery without angina pectoris; I34.0 Nonrheumatic mitral (valve) insufficiency; B96.1 Klebsiella pneumoniae [K. pneumoniae] as the cause of diseases classified elsewhere; J44.9 Chronic obstructive pulmonary disease, unspecified; M10.9 Gout, unspecified; K59.00 Constipation, unspecified; N18.2 Chronic kidney disease, stage 2 (mild); Z87.440 Personal history of urinary (tract) infections; Z95.810 Presence of automatic (implantable) cardiac defibrillator; Z99.81 Dependence on supplemental oxygen; Z90.49 Acquired absence of other specified parts of digestive tract; Z90.710 Acquired absence of both cervix and uterus; Z90.721 Acquired absence of ovaries, unilateral; Z79.84 Long term (current) use of oral hypoglycemic drugs; Z79.82 Long term (current) use of aspirin; Z79.899 Other long term (current) drug therapy; Z88.0 Allergy status to penicillin; Z87.891 Personal history of nicotine dependence; Z82.5 Family history of asthma and other chronic lower respiratory diseases; Z82.49 Family history of ischemic heart disease and other diseases of the circulatory system; Z83.3 Family history of diabetes mellitus; Z90.89 Acquired absence of other organs
CPT/HCPCS: 36415; 71010; 80048; 80053; 81001; 82962; 83036; 83605; 83735; 84100; 84443; 84484; 85025; 85610; 85651; 87040; 87077; 87086; 87186; 93005; 99285; J0696; J1650; J1815; J3475

== ENCOUNTER → 2017-02-20 | Outpatient (CLI) | payer MEDICARE ==
[~2017-02-20] MED LIST changes: +CEFD300C37 PO; +HYDR-3240 PO; +MAGN400T26 PO; +NYST60PO TP; +OMNIPAQUE 350 MG/ML, 100ML BOTTLE ONE; +POTA20PA PO
== END | disposition home or self-care (01) ==
LOC: CFH 10:39
PROVIDERS: ATTEND Physician Assistant Surgical
DX: S42.461D Displaced fracture of medial condyle of right humerus, subsequent encounter for fracture with routine healing (principal); K44.9 Diaphragmatic hernia without obstruction or gangrene; N28.1 Cyst of kidney, acquired; Z85.3 Personal history of malignant neoplasm of breast; X58.XXXD Exposure to other specified factors, subsequent encounter
CPT/HCPCS: 71260; 73200; 74160; Q9967

== ENCOUNTER 2017-02-23 11:52 | Emergency (ER) | payer MEDICARE ==
[~2017-02-23] VITALS: Ht 170.2 cm; Wt 115.0 kg
[~2017-02-23 11:52] MED LIST changes: -OMNIPAQUE 350 MG/ML, 100ML BOTTLE ONE
[2017-02-23] MEDS ORDERED: SODIUM CHLORIDE 0.9% 1,000ML IVBOLUS ONE (13:00)
[2017-02-23] MEDS ORDERED: MORPHINE SULFATE 4 MG/ML, 1ML IVPush PRN (13:00)
[2017-02-23] MEDS ORDERED: ONDANSETRON 2MG/ML, 2ML IVPush ONE (13:00)
[2017-02-23] MEDS ORDERED: SODIUM CHLORIDE FLUSH 10ML SYR IVF ONE (13:00)
[2017-02-23 13:47] LABS: PATH.CAST-FLAG NOT PRESENT; SPERM-FLAG NOT PRESENT; SRC-FLAG NOT PRESENT; XTAL-FLAG NOT PRESENT; YLC-FLAG NOT PRESENT
[2017-02-23 14:25] LABS: HEMATOCRIT 35.8 % (34.6-47.8); HEMOGLOBIN 11.4 g/dL (11.7-16.4); WHITE BLOOD COUNT 9.2 x10^3/uL (3.4-10)
[2017-02-23 14:27] VITALS: BP 108/46
[2017-02-23 14:35] LABS: BLOOD UREA NITROGEN 21 mg/dL (7-18)
== END 2017-02-23 15:05 | disposition home or self-care (01) ==
LOC: ED 13:22
DX: N30.00 Acute cystitis without hematuria (principal); I13.0 Hypertensive heart and chronic kidney disease with heart failure and stage 1 through stage 4 chronic kidney disease, or unspecified chronic kidney disease; E11.22 Type 2 diabetes mellitus with diabetic chronic kidney disease; N18.2 Chronic kidney disease, stage 2 (mild); I50.9 Heart failure, unspecified; J44.9 Chronic obstructive pulmonary disease, unspecified
CPT/HCPCS: 36415; 80048; 81001; 82040; 85025; 99284

== ENCOUNTER → 2017-04-04 | Outpatient (CLI) | payer MEDICARE ==
[~2017-04-04] MED LIST changes: +DOCU100C33 PO; -DOCU100C8 PO
== END | disposition home or self-care (01) ==
LOC: CFH 12:54
PROVIDERS: ATTEND Nurse Practitioner
DX: Z13.820 Encounter for screening for osteoporosis (principal); N95.8 Other specified menopausal and perimenopausal disorders; M89.9 Disorder of bone, unspecified
CPT/HCPCS: 77080

== ENCOUNTER 2017-05-30 09:06 | Emergency (ER) | payer MEDICARE ==
[~2017-05-30] VITALS: Ht 170.2 cm; Wt 117.0 kg
[2017-05-30] MEDS ORDERED: ALBUTEROL/IPRATROPIUM 2.5MG/0.5MG, 3 ML NPPB ONE (09:30)
[2017-05-30] MEDS ORDERED: methylPREDNISolone SOD SUCC 125 MG/2 ML IVP ONE (09:30)
[2017-05-30] MEDS ORDERED: SODIUM CHLORIDE FLUSH 10ML SYR IVF ONE (09:30)
[2017-05-30] MEDS ORDERED: ALBUTEROL/IPRATROPIUM 2.5MG/0.5MG, 3 ML ONE (09:32)
[2017-05-30] MEDS ORDERED: methylPREDNISolone SOD SUCC 125 MG/2 ML ONE (09:49)
[2017-05-30 09:53] LABS: HEMATOCRIT 35.6 % (34.6-47.8); HEMOGLOBIN 11.5 g/dL (11.7-16.4); WHITE BLOOD COUNT 9.8 x10^3/uL (3.4-10)
[2017-05-30 10:04] LABS: ASPARTATE AMINO TRANSFERASE 9 U/L (15-37); BLOOD UREA NITROGEN 15 mg/dL (7-18)
[2017-05-30 10:14] LABS: IS PT STATUS REG ER OR PRE ER? YES
[2017-05-30] MEDS ORDERED: OMNIPAQUE 350 MG/ML, 100ML BOTTLE ONE (11:37)
[2017-05-30 12:27] VITALS: BP 120/70
[2017-05-30 12:32] LABS: RAPID INFLUENZA A Negative (Negative); RAPID INFLUENZA B Negative (Negative)
== END 2017-05-30 12:29 | disposition home or self-care (01) ==
LOC: ED 10:18
DX: J44.1 Chronic obstructive pulmonary disease with (acute) exacerbation (principal); J20.9 Acute bronchitis, unspecified; I11.0 Hypertensive heart disease with heart failure; I50.9 Heart failure, unspecified; E11.9 Type 2 diabetes mellitus without complications; Z90.710 Acquired absence of both cervix and uterus; Z87.891 Personal history of nicotine dependence
CPT/HCPCS: 36415; 71010; 71275; 80053; 83605; 83880; 84484; 85025; 85379; 85610; 85730; 87040; 87400; 93005; 94640; 96374; 99285; J2930; Q9967; J7620

== ENCOUNTER 2017-06-01 02:54 | Inpatient (IN) | payer MEDICARE ==
[~2017-06-01] VITALS: Ht 170.2 cm; Wt 121.5 kg
[2017-06-01] MEDS ORDERED: ALBUTEROL/IPRATROPIUM 2.5MG/0.5MG, 3 ML NPPB SCH (03:30)
[2017-06-01] MEDS ORDERED: ALBUTEROL/IPRATROPIUM 2.5MG/0.5MG, 3 ML ONE (03:47)
[2017-06-01 04:07] LABS: HEMATOCRIT 34.9 % (34.6-47.8); HEMOGLOBIN 11.2 g/dL (11.7-16.4); WHITE BLOOD COUNT 13.6 x10^3/uL (3.4-10)
[2017-06-01 04:23] LABS: ASPARTATE AMINO TRANSFERASE 138 U/L (15-37); BLOOD UREA NITROGEN 35 mg/dL (7-18)
[2017-06-01 04:28] LABS: IS PT STATUS REG ER OR PRE ER? YES
[2017-06-01] MEDS ORDERED: FUROSEMIDE 40 MG/4 ML IV ONE (05:00)
[2017-06-01] MEDS ORDERED: FUROSEMIDE 40 MG/4 ML ONE (05:04)
[2017-06-01] MEDS ORDERED: DEXTROSE 4 GM TAB.CHEW PO PRN (05:30)
[2017-06-01] MEDS ORDERED: ONDANSETRON 2MG/ML, 2ML IVPush PRN (05:30)
[2017-06-01] MEDS ORDERED: GLUCAGON 1 MG IM PRN (05:30)
[2017-06-01] MEDS ORDERED: hydrALAzine 20 MG/ML, 1ML IVPush PRN (05:30)
[2017-06-01] MEDS ORDERED: DEXTROSE 50%, 50ML SYRINGE IVPush PRN (05:30)
[2017-06-01 06:37] VITALS: BP 123/81
[2017-06-01] MEDS: INSULIN ASPART 100 UNITS/ML, PEN SQ-INSULIN SCH ×4 (07:00→21:00)
[2017-06-01 07:01] VITALS: BP 113/77
[2017-06-01] MEDS ORDERED: SODIUM CHLORIDE FLUSH 10ML SYR IVF SCH (09:00)
[2017-06-01] MEDS ORDERED: LEVOTHYROXINE 88 MCG TABLET PO SCH (09:00)
[2017-06-01] MEDS ORDERED: MAGNESIUM SULFATE PMX 2GM/50ML 50 ML IV ONE (09:00)
[2017-06-01] MEDS: SODIUM CHLORIDE FLUSH 10ML SYR IVF SCH ×2 (09:00→21:36)
[2017-06-01] MEDS ORDERED: LINA5TAB PO (10:52)
[2017-06-01] MEDS: ALLOPURINOL 300 MG TABLET PO SCH (10:52)
[2017-06-01] MEDS: MAGNESIUM OXIDE 400 MG TABLET PO SCH ×2 (10:52→21:36)
[2017-06-01] MEDS: ASPIRIN 81 MG TABLET EC PO SCH (10:53)
[2017-06-01] MEDS: GABAPENTIN 400 MG CAPSULE PO SCH ×3 (10:53→21:36)
[2017-06-01] MEDS: METOPROLOL SUCCINATE 25 MG TAB.ER.24H PO SCH (10:54)
[2017-06-01] MEDS: POLYETHYLENE GLYCOL 17 GM PACKET PO SCH (10:55)
[2017-06-01] MEDS: ALBUTEROL/IPRATROPIUM 2.5MG/0.5MG, 3 ML NPPB PRN (12:00)
[2017-06-01 14:43] VITALS: BP 125/82
[2017-06-01] MEDS: ENOXAPARIN 40 MG/0.4 ML SQ SCH (17:44)
[2017-06-01] MEDS ORDERED: HUM100VI6 SQ-INSULIN (17:51)
[2017-06-01 20:06] VITALS: BP 124/68
[2017-06-01] MEDS: ATORVASTATIN 10 MG TABLET PO SCH (21:36)
[2017-06-01] MEDS: INSULIN ASPART 70/30 100U/ML, PEN SQ-INSULIN SCH (21:36)
[2017-06-02] MEDS: ALBUTEROL/IPRATROPIUM 2.5MG/0.5MG, 3 ML NPPB PRN ×3 (00:35→12:48)
[2017-06-02] MEDS ORDERED: FUROSEMIDE 40 MG/4 ML IV ONE (02:00)
[2017-06-02 02:30] VITALS: BP 129/80
[2017-06-02 04:50] LABS: HEMOGLOBIN 10.8 g/dL (11.7-16.4); WHITE BLOOD COUNT 12.4 x10^3/uL (3.4-10)
[2017-06-02 04:58] LABS: BLOOD UREA NITROGEN 30 mg/dL (7-18)
[2017-06-02 07:24] VITALS: BP 125/84
[2017-06-02] MEDS: INSULIN ASPART 100 UNITS/ML, PEN SQ-INSULIN SCH ×4 (08:06→20:10)
[2017-06-02] MEDS: ALLOPURINOL 300 MG TABLET PO SCH (08:23)
[2017-06-02] MEDS: MAGNESIUM OXIDE 400 MG TABLET PO SCH ×2 (08:23→20:06)
[2017-06-02] MEDS: GABAPENTIN 400 MG CAPSULE PO SCH ×3 (08:23→20:06)
[2017-06-02] MEDS: LEVOTHYROXINE 88 MCG TABLET PO SCH (08:24)
[2017-06-02] MEDS: INSULIN ASPART 70/30 100U/ML, PEN SQ-INSULIN SCH ×2 (08:24→16:17)
[2017-06-02] MEDS: ASPIRIN 81 MG TABLET EC PO SCH (08:24)
[2017-06-02] MEDS: morphine SULFATE 10 MG/ML, 1ML IVPush PRN (08:24)
[2017-06-02] MEDS: (Linagliptin** (Tradjenta**) 5 MG) HOMEMEDPO SCH (08:25)
[2017-06-02] MEDS: POLYETHYLENE GLYCOL 17 GM PACKET PO SCH (08:26)
[2017-06-02] MEDS: SODIUM CHLORIDE FLUSH 10ML SYR IVF SCH ×2 (08:26→20:06)
[2017-06-02] MEDS ORDERED: FURO40TA6 PO (08:37)
[2017-06-02] MEDS: FUROSEMIDE 40 MG TABLET PO SCH ×2 (09:47→17:55)
[2017-06-02] MEDS: POTASSIUM CHLORIDE 20 MEQ TAB.ER.PRT PO SCH ×2 (09:47→17:55)
[2017-06-02] MEDS: METOPROLOL SUCCINATE 25 MG TAB.ER.24H PO SCH (09:48)
[2017-06-02 13:23] VITALS: BP 111/69
[2017-06-02] MEDS: ENOXAPARIN 40 MG/0.4 ML SQ SCH (16:16)
[2017-06-02] MEDS: ATORVASTATIN 10 MG TABLET PO SCH (20:06)
[2017-06-02 20:12] VITALS: BP 104/72
[2017-06-02] MEDS: INSULIN DETEMIR 100 UNITS/ML, PEN SQ-INSULIN SCH (23:03)
[2017-06-03 00:51] VITALS: BP 106/74
[2017-06-03 05:26] LABS: BLOOD UREA NITROGEN 29 mg/dL (7-18)
[2017-06-03] MEDS: LEVOTHYROXINE 88 MCG TABLET PO SCH (06:22)
[2017-06-03] MEDS: INSULIN ASPART 100 UNITS/ML, PEN SQ-INSULIN SCH ×4 (07:00→20:17)
[2017-06-03 07:19] VITALS: BP 113/80
[2017-06-03] MEDS: ALBUTEROL/IPRATROPIUM 2.5MG/0.5MG, 3 ML NPPB PRN (08:13)
[2017-06-03] MEDS: (Linagliptin** (Tradjenta**) 5 MG) HOMEMEDPO SCH (08:26)
[2017-06-03] MEDS: ASPIRIN 81 MG TABLET EC PO SCH (08:35)
[2017-06-03] MEDS: SODIUM CHLORIDE FLUSH 10ML SYR IVF SCH ×2 (08:35→21:00)
[2017-06-03] MEDS: ALLOPURINOL 300 MG TABLET PO SCH (08:35)
[2017-06-03] MEDS: SPIRONOLACTONE 25 MG TABLET PO SCH (08:35)
[2017-06-03] MEDS: MAGNESIUM OXIDE 400 MG TABLET PO SCH ×2 (08:35→19:56)
[2017-06-03] MEDS: POLYETHYLENE GLYCOL 17 GM PACKET PO SCH (08:35)
[2017-06-03] MEDS: GABAPENTIN 400 MG CAPSULE PO SCH ×3 (08:35→19:56)
[2017-06-03] MEDS: METOPROLOL SUCCINATE 25 MG TAB.ER.24H PO SCH (08:35)
[2017-06-03] MEDS: INSULIN DETEMIR 100 UNITS/ML, PEN SQ-INSULIN SCH ×2 (08:36→20:17)
[2017-06-03] MEDS: INSULIN ASPART 70/30 100U/ML, PEN SQ-INSULIN SCH ×2 (08:36→16:38)
[2017-06-03] MEDS: morphine SULFATE 10 MG/ML, 1ML IVPush PRN (11:42)
[2017-06-03] MEDS ORDERED: FUROSEMIDE 40 MG/4 ML IV ONE (12:30)
[2017-06-03 13:16] VITALS: BP 122/60
[2017-06-03] MEDS: ENOXAPARIN 40 MG/0.4 ML SQ SCH (16:37)
[2017-06-03 18:59] VITALS: BP 111/68
[2017-06-03] MEDS: ATORVASTATIN 10 MG TABLET PO SCH (19:56)
[2017-06-03] MEDS: FUROSEMIDE 40 MG TABLET PO SCH (19:57)
[2017-06-04 01:55] VITALS: BP 117/76
[2017-06-04] MEDS: ALBUTEROL/IPRATROPIUM 2.5MG/0.5MG, 3 ML NPPB PRN (03:25)
[2017-06-04 05:02] LABS: BLOOD UREA NITROGEN 29 mg/dL (7-18)
[2017-06-04] MEDS: LEVOTHYROXINE 88 MCG TABLET PO SCH (05:05)
[2017-06-04] MEDS ORDERED: SPIR25TA PO (06:34)
[2017-06-04] MEDS ORDERED: PRED20TA PO (06:34)
[2017-06-04] MEDS ORDERED: FURO40TA6 PO (06:34)
[2017-06-04] MEDS: INSULIN ASPART 100 UNITS/ML, PEN SQ-INSULIN SCH ×2 (07:00→12:33)
[2017-06-04 07:46] VITALS: BP 127/80
[2017-06-04] MEDS: POLYETHYLENE GLYCOL 17 GM PACKET PO SCH (07:56)
[2017-06-04] MEDS: (Linagliptin** (Tradjenta**) 5 MG) HOMEMEDPO SCH (08:41)
[2017-06-04] MEDS: MAGNESIUM OXIDE 400 MG TABLET PO SCH (08:50)
[2017-06-04] MEDS: SODIUM CHLORIDE FLUSH 10ML SYR IVF SCH (08:50)
[2017-06-04] MEDS: ASPIRIN 81 MG TABLET EC PO SCH (08:50)
[2017-06-04] MEDS: SPIRONOLACTONE 25 MG TABLET PO SCH (08:50)
[2017-06-04] MEDS: ALLOPURINOL 300 MG TABLET PO SCH (08:50)
[2017-06-04] MEDS: GABAPENTIN 400 MG CAPSULE PO SCH (08:50)
[2017-06-04] MEDS: METOPROLOL SUCCINATE 25 MG TAB.ER.24H PO SCH (08:50)
[2017-06-04] MEDS: INSULIN DETEMIR 100 UNITS/ML, PEN SQ-INSULIN SCH (08:51)
[2017-06-04] MEDS: INSULIN ASPART 70/30 100U/ML, PEN SQ-INSULIN SCH (08:52)
[2017-06-04] MEDS: FUROSEMIDE 40 MG TABLET PO SCH (08:54)
[2017-06-04] MEDS ORDERED: LISI2.5T PO (10:11)
== END 2017-06-04 13:24 | disposition home or self-care (01) | DRG 291 ==
LOC: ED 03:22 → EDIP 04:55 → 5SO 06:18
PROVIDERS: ADMIT Hospitalist; ATTEND Hospitalist
DX: I13.0 Hypertensive heart and chronic kidney disease with heart failure and stage 1 through stage 4 chronic kidney disease, or unspecified chronic kidney disease (principal); I50.43 Acute on chronic combined systolic (congestive) and diastolic (congestive) heart failure; J96.21 Acute and chronic respiratory failure with hypoxia; E11.22 Type 2 diabetes mellitus with diabetic chronic kidney disease; I27.20 Pulmonary hypertension, unspecified; E11.65 Type 2 diabetes mellitus with hyperglycemia; Z68.41 Body mass index [BMI] 40.0-44.9, adult; J44.1 Chronic obstructive pulmonary disease with (acute) exacerbation; Z79.4 Long term (current) use of insulin; D63.8 Anemia in other chronic diseases classified elsewhere; E03.9 Hypothyroidism, unspecified; E78.5 Hyperlipidemia, unspecified; E87.6 Hypokalemia; I25.10 Atherosclerotic heart disease of native coronary artery without angina pectoris; M10.9 Gout, unspecified; N18.2 Chronic kidney disease, stage 2 (mild); E66.9 Obesity, unspecified; F41.9 Anxiety disorder, unspecified; F43.22 Adjustment disorder with anxiety; Z90.49 Acquired absence of other specified parts of digestive tract; Z90.89 Acquired absence of other organs; Z87.891 Personal history of nicotine dependence; Z95.810 Presence of automatic (implantable) cardiac defibrillator; Z99.81 Dependence on supplemental oxygen; Z90.710 Acquired absence of both cervix and uterus; Z88.0 Allergy status to penicillin
CPT/HCPCS: 36415; 71010; 71020; 80048; 80053; 81003; 82040; 82962; 83605; 83735; 83880; 84100; 84145; 84484; 85025; 87040; 93005; 94640; 96374; J1650; J1815; J1940; J7620; J2270; J3475; J7512

== ENCOUNTER 2017-06-28 18:00 | Emergency (ER) | payer MEDICARE ==
[~2017-06-28] VITALS: Ht 165.1 cm; Wt 116.0 kg
[~2017-06-28 18:00] MED LIST changes: +HUM100VI6 SQ-INSULIN; +LINA5TAB PO
[2017-06-28] MEDS ORDERED: SODIUM CHLORIDE FLUSH 10ML SYR IVF ONE (19:00)
[2017-06-28] MEDS ORDERED: methylPREDNISolone SOD SUCC 125 MG/2 ML IVP ONE (19:00)
[2017-06-28] MEDS ORDERED: methylPREDNISolone SOD SUCC 125 MG/2 ML ONE (19:12)
[2017-06-28 19:15] LABS: HEMOGLOBIN 12.1 g/dL (11.7-16.4); WHITE BLOOD COUNT 9.3 x10^3/uL (3.4-10)
[2017-06-28 19:27] LABS: ASPARTATE AMINO TRANSFERASE 47 U/L (15-37); BLOOD UREA NITROGEN 26 mg/dL (7-18)
[2017-06-28 19:32] LABS: IS PT STATUS REG ER OR PRE ER? YES
[2017-06-28 20:54] VITALS: BP 121/54
== END 2017-06-28 20:56 | disposition home or self-care (01) ==
LOC: ED 18:16
DX: J44.1 Chronic obstructive pulmonary disease with (acute) exacerbation (principal); I13.0 Hypertensive heart and chronic kidney disease with heart failure and stage 1 through stage 4 chronic kidney disease, or unspecified chronic kidney disease; E11.22 Type 2 diabetes mellitus with diabetic chronic kidney disease; N18.2 Chronic kidney disease, stage 2 (mild); I50.9 Heart failure, unspecified; E87.5 Hyperkalemia
CPT/HCPCS: 36415; 71010; 80053; 83880; 84484; 85025; 93005; 96374; 99285; J2930

== ENCOUNTER 2017-06-30 16:45 | Inpatient (IN) | payer MEDICARE ==
[~2017-06-30] VITALS: Ht 170.2 cm; Wt 108.9 kg
[2017-06-30] MEDS ORDERED: methylPREDNISolone SOD SUCC 125 MG/2 ML IVP ONE (17:00)
[2017-06-30] MEDS ORDERED: PLEASE ENTER HEIGHT AND WEIGHT MC SCH (17:00)
[2017-06-30] MEDS ORDERED: SODIUM CHLORIDE FLUSH 10ML SYR IVF ONE (17:00)
[2017-06-30] MEDS ORDERED: LORazepam 2 MG/ML, 1ML ONE (17:04)
[2017-06-30] MEDS ORDERED: methylPREDNISolone SOD SUCC 125 MG/2 ML ONE (17:04)
[2017-06-30 17:32] LABS: BASOPHILS # (AUTO) 0.02 x10^3/uL (0-0.1); BASOPHILS % (AUTO) 0 % (0-1); EOSINOPHILS % (AUTO) 0 % (1-7); LYMPHOCYTES # (AUTO) 1.08 x10^3/uL (1-3.4); LYMPHOCYTES % (AUTO) 11 % (22-44); MD NO; MEAN CORPUSCULAR HEMOGLOBIN 27.7 pg (27.0-34.8); MEAN CORPUSCULAR HGB CONC 31.7 g/dL (32.4-35.8); MEAN CORPUSCULAR VOLUME 87.4 fL (80-100); MEAN PLATELET VOLUME 8.5 fL (7.4-10.4); MONOCYTES # (AUTO) 0.77 x10^3/uL (0.2-0.8); MONOCYTES % (AUTO) 8 % (2-9); NEUTROPHILS # (AUTO) 7.98 x10^3/uL (1.8-6.8); NEUTROPHILS % (AUTO) 81 % (42-75); PLATELET COUNT 180 x10^3/uL (130-400); RED BLOOD COUNT 4.46 x10^6/uL (3.82-5.3)
[2017-06-30] MEDS ORDERED: LORazepam 2 MG/ML, 1ML IVPush ONE (18:00)
[2017-06-30] MEDS ORDERED: AZITHROMYCIN 500 MG in SODIUM CHLORIDE 0.9% 250 ML IV ONE (19:30)
[2017-06-30 19:32] LABS: ALBUMIN 3.7 g/dL (3.4-5.0); ANION GAP 8 mmol/L (5-15); CALCIUM 8.8 mg/dL (8.5-10.1); CHLORIDE 101 mmol/L (98-107); CREATININE 0.97 mg/dL (0.55-1.02)
[2017-06-30 20:35] LABS: ALANINE AMINOTRANSFERASE 71 U/L (12-78)
[2017-06-30 20:40] LABS: ALKALINE PHOSPHATASE 106 U/L (45-117); BILIRUBIN,TOTAL 1.5 mg/dL (0.2-1.0); TOTAL PROTEIN 7.1 g/dL (6.4-8.2)
[2017-06-30 20:42] LABS: PROTHROMBIN TIME 10.3 Seconds (9.6-11.5)
[2017-06-30 20:44] LABS: TROPONIN I 0.088 ng/mL (0.000-0.045)
[2017-06-30] MEDS ORDERED: ALBUTEROL/IPRATROPIUM 2.5MG/0.5MG, 3 ML ONE ×2 (21:33)
[2017-06-30 22:00] VITALS: BP 112/70
[2017-06-30] MEDS ORDERED: ALBUTEROL/IPRATROPIUM 2.5MG/0.5MG, 3 ML NPPB SCH (22:00)
[2017-06-30] MEDS ORDERED: ONDANSETRON 2MG/ML, 2ML IVPush PRN (23:30)
[2017-06-30] MEDS ORDERED: PROMETHAZINE 25 MG/ML, 1ML IM PRN (23:30)
[2017-06-30] MEDS ORDERED: ACETAMINOPHEN 325 MG TABLET PO PRN (23:30)
[2017-06-30] MEDS ORDERED: FUROSEMIDE 40 MG/4 ML IV SCH (23:30)
[2017-06-30] MEDS ORDERED: ONDANSETRON ODT 4 MG PO PRN (23:30)
[2017-07-01 01:21] LABS: HEMOGLOBIN A1C 6.4 % (4.2-6.3)
[2017-07-01 01:47] VITALS: BP 118/78
[2017-07-01] MEDS: MAGNESIUM OXIDE 400 MG TABLET PO SCH ×3 (02:13→20:40)
[2017-07-01] MEDS: HEPARIN 5,000 UNITS/ML, 1ML SQ SCH ×4 (02:13→22:51)
[2017-07-01] MEDS: ATORVASTATIN 10 MG TABLET PO SCH ×2 (02:13→20:40)
[2017-07-01] MEDS: INSULIN ASPART 100 UNITS/ML, PEN SQ-INSULIN SCH ×5 (02:14→20:40)
[2017-07-01] MEDS: NYSTATIN TOPICAL POWDER 15GM TP SCH ×3 (02:14→20:40)
[2017-07-01 02:30] LABS: BASOPHILS # (AUTO) 0.01 x10^3/uL (0-0.1); BASOPHILS % (AUTO) 0 % (0-1); EOSINOPHILS % (AUTO) 0 % (1-7); LYMPHOCYTES % (AUTO) 4 % (22-44); MD NO; MEAN CORPUSCULAR HEMOGLOBIN 28.3 pg (27.0-34.8); MEAN CORPUSCULAR HGB CONC 32.2 g/dL (32.4-35.8); MEAN PLATELET VOLUME 8.7 fL (7.4-10.4); MONOCYTES # (AUTO) 0.17 x10^3/uL (0.2-0.8); MONOCYTES % (AUTO) 2 % (2-9); NEUTROPHILS # (AUTO) 7.23 x10^3/uL (1.8-6.8); NEUTROPHILS % (AUTO) 94 % (42-75); PLATELET COUNT 168 x10^3/uL (130-400); RED BLOOD COUNT 4.04 x10^6/uL (3.82-5.3); RED CELL DISTRIBUTION WIDTH 17.7 % (9.6-15.2)
[2017-07-01 02:35] LABS: ALANINE AMINOTRANSFERASE 63 U/L (12-78); ALBUMIN 3.2 g/dL (3.4-5.0); ANION GAP 8 mmol/L (5-15); CALCIUM 8.4 mg/dL (8.5-10.1); CHLORIDE 101 mmol/L (98-107)
[2017-07-01 02:38] LABS: TROPONIN I 0.052 ng/mL (0.000-0.045)
[2017-07-01 02:44] LABS: ALKALINE PHOSPHATASE 92 U/L (45-117); BILIRUBIN,TOTAL 1.4 mg/dL (0.2-1.0); CHOL/HDL RATIO 2.9; CHOLESTEROL, TOTAL 112 mg/dL (140-239); CREATININE 0.88 mg/dL (0.55-1.02); HDL CHOL % 35 % (28-40); HDL CHOLESTEROL (DIRECT) 39 mg/dL (40-60); LDL CHOLESTEROL,CALCULATED 52 mg/dL (54-169); LDL/HDL RATIO 1.3 (0.5-3.0); THYROID STIMULATING HORMONE 0.273 mIU/L (0.358-3.740); TOTAL PROTEIN 6.5 g/dL (6.4-8.2); TRIGLYCERIDES 104 mg/dL (50-200); VLDL CHOLESTEROL 21 mg/dL (0-25)
[2017-07-01] MEDS ORDERED: AZITHROMYCIN 500 MG in SODIUM CHLORIDE 0.9% 250 ML IV SCH (04:30)
[2017-07-01 05:43] LABS: MICROSCOPIC NOT IND
[2017-07-01 05:46] LABS: CULTURE INDICATED? NO
[2017-07-01] MEDS ORDERED: ALBUTEROL/IPRATROPIUM 2.5MG/0.5MG, 3 ML NPPB SCH (07:00)
[2017-07-01 08:50] VITALS: BP 117/78
[2017-07-01] MEDS: POLYETHYLENE GLYCOL 17 GM PACKET PO SCH (08:50)
[2017-07-01] MEDS: FUROSEMIDE 40 MG/4 ML IV SCH ×2 (08:51→17:02)
[2017-07-01] MEDS: LEVOTHYROXINE 88 MCG TABLET PO SCH (08:51)
[2017-07-01] MEDS: ALLOPURINOL 300 MG TABLET PO SCH (08:51)
[2017-07-01] MEDS: ASPIRIN 81 MG TABLET EC PO SCH (08:51)
[2017-07-01] MEDS: METOPROLOL SUCCINATE 25 MG TAB.ER.24H PO SCH (08:51)
[2017-07-01] MEDS: SPIRONOLACTONE 50 MG TABLET PO SCH (08:53)
[2017-07-01] MEDS ORDERED: SPIRONOLACTONE 25 MG TABLET PO SCH (09:00)
[2017-07-01 14:45] VITALS: BP 123/83
[2017-07-01] MEDS ORDERED: SODIUM CHLORIDE NASAL SPRAY 45ML BOTTLE NAS PRN (15:00)
[2017-07-01] MEDS: DOXYCYCLINE 100 MG in DEXTROSE 5% 250 ML IV SCH (17:02)
[2017-07-01 18:55] VITALS: BP 117/64
[2017-07-01] MEDS ORDERED: ALPR0.25 PO (19:04)
[2017-07-01] MEDS: GUAIFENESIN ER 600 MG TABLET PO SCH (20:40)
[2017-07-02 03:00] VITALS: BP 126/79
[2017-07-02] MEDS: DOXYCYCLINE 100 MG in DEXTROSE 5% 250 ML IV SCH ×2 (05:08→17:01)
[2017-07-02 05:38] LABS: BASOPHILS # (AUTO) 0.05 x10^3/uL (0-0.1); BASOPHILS % (AUTO) 0 % (0-1); EOSINOPHILS # (AUTO) 0.03 x10^3/uL (0-0.4); EOSINOPHILS % (AUTO) 0 % (1-7); LYMPHOCYTES # (AUTO) 1.58 x10^3/uL (1-3.4); LYMPHOCYTES % (AUTO) 13 % (22-44); MD NO; MEAN CORPUSCULAR HEMOGLOBIN 28.2 pg (27.0-34.8); MEAN CORPUSCULAR HGB CONC 32.3 g/dL (32.4-35.8); MEAN CORPUSCULAR VOLUME 87.4 fL (80-100); MEAN PLATELET VOLUME 8.5 fL (7.4-10.4); MONOCYTES # (AUTO) 0.81 x10^3/uL (0.2-0.8); MONOCYTES % (AUTO) 7 % (2-9); NEUTROPHILS # (AUTO) 9.36 x10^3/uL (1.8-6.8); NEUTROPHILS % (AUTO) 79 % (42-75); PLATELET COUNT 182 x10^3/uL (130-400); RED BLOOD COUNT 4.61 x10^6/uL (3.82-5.3); RED CELL DISTRIBUTION WIDTH 17.8 % (9.6-15.2)
[2017-07-02 05:42] LABS: CHLORIDE 99 mmol/L (98-107)
[2017-07-02 05:54] LABS: ALANINE AMINOTRANSFERASE 55 U/L (12-78); ALBUMIN 3.6 g/dL (3.4-5.0); ALKALINE PHOSPHATASE 104 U/L (45-117); ANION GAP 6 mmol/L (5-15); BILIRUBIN,TOTAL 1.8 mg/dL (0.2-1.0); CALCIUM 9.2 mg/dL (8.5-10.1); CREATININE 0.96 mg/dL (0.55-1.02); TOTAL PROTEIN 7.3 g/dL (6.4-8.2)
[2017-07-02] MEDS ORDERED: ALBUTEROL/IPRATROPIUM 2.5MG/0.5MG, 3 ML NPPB PRN (07:00)
[2017-07-02 07:19] VITALS: BP 120/82
[2017-07-02] MEDS: INSULIN ASPART 100 UNITS/ML, PEN SQ-INSULIN SCH ×4 (08:09→21:53)
[2017-07-02] MEDS: HEPARIN 5,000 UNITS/ML, 1ML SQ SCH ×3 (08:10→23:43)
[2017-07-02] MEDS: FUROSEMIDE 40 MG/4 ML IV SCH ×2 (08:10→17:00)
[2017-07-02] MEDS: GUAIFENESIN ER 600 MG TABLET PO SCH ×2 (08:11→21:53)
[2017-07-02] MEDS: SPIRONOLACTONE 50 MG TABLET PO SCH (08:11)
[2017-07-02] MEDS: ASPIRIN 81 MG TABLET EC PO SCH (08:11)
[2017-07-02] MEDS: POLYETHYLENE GLYCOL 17 GM PACKET PO SCH (08:12)
[2017-07-02] MEDS: LEVOTHYROXINE 88 MCG TABLET PO SCH (08:12)
[2017-07-02] MEDS: MAGNESIUM OXIDE 400 MG TABLET PO SCH ×2 (08:12→21:53)
[2017-07-02] MEDS: NYSTATIN TOPICAL POWDER 15GM TP SCH ×2 (08:13→21:53)
[2017-07-02] MEDS: ALLOPURINOL 300 MG TABLET PO SCH (08:13)
[2017-07-02] MEDS: METOPROLOL SUCCINATE 25 MG TAB.ER.24H PO SCH (08:13)
[2017-07-02] MEDS: POTASSIUM CHLORIDE 20 MEQ TAB.ER.PRT PO SCH ×2 (11:43→17:00)
[2017-07-02 14:02] VITALS: BP 118/84
[2017-07-02] MEDS: ALBUTEROL/IPRATROPIUM 2.5MG/0.5MG, 3 ML NPPB SCH ×2 (16:12→19:56)
[2017-07-02] MEDS: ATORVASTATIN 10 MG TABLET PO SCH (21:53)
[2017-07-02 22:45] VITALS: BP 108/64
[2017-07-03 02:33] VITALS: BP 121/76
[2017-07-03] MEDS: DOXYCYCLINE 100 MG in DEXTROSE 5% 250 ML IV SCH ×2 (05:10→17:42)
[2017-07-03 06:07] LABS: CHLORIDE 100 mmol/L (98-107)
[2017-07-03 06:12] LABS: ANION GAP 9 mmol/L (5-15); CALCIUM 8.4 mg/dL (8.5-10.1); CREATININE 0.83 mg/dL (0.55-1.02)
[2017-07-03 07:37] VITALS: BP 129/86
[2017-07-03] MEDS: ALBUTEROL/IPRATROPIUM 2.5MG/0.5MG, 3 ML NPPB SCH ×3 (08:05→15:00)
[2017-07-03] MEDS: INSULIN ASPART 100 UNITS/ML, PEN SQ-INSULIN SCH ×3 (08:17→17:43)
[2017-07-03] MEDS: FUROSEMIDE 40 MG/4 ML IV SCH ×2 (08:17→17:00)
[2017-07-03] MEDS: HEPARIN 5,000 UNITS/ML, 1ML SQ SCH ×2 (08:17→15:30)
[2017-07-03] MEDS: POTASSIUM CHLORIDE 20 MEQ TAB.ER.PRT PO SCH (08:17)
[2017-07-03] MEDS: MAGNESIUM OXIDE 400 MG TABLET PO SCH (08:18)
[2017-07-03] MEDS: ASPIRIN 81 MG TABLET EC PO SCH (08:18)
[2017-07-03] MEDS: GUAIFENESIN ER 600 MG TABLET PO SCH (08:18)
[2017-07-03] MEDS: SPIRONOLACTONE 50 MG TABLET PO SCH (08:18)
[2017-07-03] MEDS: POLYETHYLENE GLYCOL 17 GM PACKET PO SCH (08:19)
[2017-07-03] MEDS: ALLOPURINOL 300 MG TABLET PO SCH (08:19)
[2017-07-03] MEDS: METOPROLOL SUCCINATE 25 MG TAB.ER.24H PO SCH (08:19)
[2017-07-03] MEDS: LEVOTHYROXINE 88 MCG TABLET PO SCH (08:19)
[2017-07-03] MEDS: NYSTATIN TOPICAL POWDER 15GM TP SCH (08:19)
[2017-07-03] MEDS ORDERED: GUAI600T31 PO (12:25)
[2017-07-03] MEDS ORDERED: DOXY100T PO (12:25)
[2017-07-03] MEDS ORDERED: PRED20TA PO (12:25)
[2017-07-03] MEDS ORDERED: FURO-92 PO (12:25)
[2017-07-03 14:24] VITALS: BP 108/74
== END 2017-07-03 18:33 | DRG 291 ==
LOC: ED 20:44 → EDIP 21:00 → 4EST 21:55 → 4WST 07-01 06:26 → 4EST 07-01 06:30
PROVIDERS: ADMIT Surgery; ATTEND Surgery
PROC: 5A09357 Assistance with Respiratory Ventilation, Less than 24 Consecutive Hours, Continuous Positive Airway Pressure (ICD-10-PCS; principal; 2017-06-30)
DX: I13.0 Hypertensive heart and chronic kidney disease with heart failure and stage 1 through stage 4 chronic kidney disease, or unspecified chronic kidney disease (principal); J96.21 Acute and chronic respiratory failure with hypoxia; E11.22 Type 2 diabetes mellitus with diabetic chronic kidney disease; I50.23 Acute on chronic systolic (congestive) heart failure; J44.1 Chronic obstructive pulmonary disease with (acute) exacerbation; E66.2 Morbid (severe) obesity with alveolar hypoventilation; E78.5 Hyperlipidemia, unspecified; N18.2 Chronic kidney disease, stage 2 (mild); Z87.891 Personal history of nicotine dependence; Z79.82 Long term (current) use of aspirin; Z79.899 Other long term (current) drug therapy; Z68.37 Body mass index [BMI] 37.0-37.9, adult; E86.0 Dehydration
CPT/HCPCS: 36415; 36600; 71010; 80048; 80053; 80061; 81003; 82803; 82962; 83036; 83605; 83735; 83880; 84100; 84439; 84443; 84484; 85025; 85610; 87040; 87070; 87077; 87186; 87205; 93005; 94640; 94660; 96365; 96375; J0456; J1644; J1815; J1940; J7060; J7620; J2060; J2930; J7050; J7512

== ENCOUNTER 2017-08-23 18:10 | Inpatient (IN) | payer MEDICARE ==
[~2017-08-23] VITALS: Ht 170.2 cm; Wt 118.3 kg
[~2017-08-23 18:10] MED LIST changes: +ALPR0.25 PO; +ASPI-621 PO; +ATOR10TA9 PO; +DOXY100T PO; +FURO-92 PO; +GABA-827 PO; +GUAI600T31 PO; +LEVO88TA2 PO; +MAGN64TA9 PO
[2017-08-23 19:21] LABS: BASOPHILS # (AUTO) 0.07 x10^3/uL (0-0.1); BASOPHILS % (AUTO) 1 % (0-1); EOSINOPHILS # (AUTO) 0.28 x10^3/uL (0-0.4); EOSINOPHILS % (AUTO) 2 % (1-7); LYMPHOCYTES # (AUTO) 1.86 x10^3/uL (1-3.4); LYMPHOCYTES % (AUTO) 15 % (22-44); MD NO; MEAN CORPUSCULAR HEMOGLOBIN 28.5 pg (27.0-34.8); MONOCYTES # (AUTO) 0.88 x10^3/uL (0.2-0.8); MONOCYTES % (AUTO) 7 % (2-9); NEUTROPHILS # (AUTO) 9.06 x10^3/uL (1.8-6.8); NEUTROPHILS % (AUTO) 75 % (42-75); PLATELET COUNT 181 x10^3/uL (130-400); RED CELL DISTRIBUTION WIDTH 21.2 % (9.6-15.2)
[2017-08-23 19:32] LABS: ALBUMIN 3.5 g/dL (3.4-5.0); ANION GAP 13 mmol/L (5-15); CALCIUM 8.5 mg/dL (8.5-10.1); CHLORIDE 103 mmol/L (98-107)
[2017-08-23 19:38] LABS: ALANINE AMINOTRANSFERASE 35 U/L (12-78); ALKALINE PHOSPHATASE 121 U/L (45-117)
[2017-08-23] MEDS ORDERED: FUROSEMIDE 40 MG/4 ML IVPush ONE (21:30)
[2017-08-23] MEDS ORDERED: NITROGLYCERIN OINT 2%, 1GM TP ONE (21:30)
[2017-08-23] MEDS ORDERED: SODIUM CHLORIDE FLUSH 10ML SYR IVF ONE (21:30)
[2017-08-23 21:41] LABS: TROPONIN I 0.038 ng/mL (0.000-0.045)
[2017-08-23] MEDS ORDERED: FUROSEMIDE 40 MG/4 ML ONE (21:56)
[2017-08-23] MEDS: ATORVASTATIN 10 MG TABLET PO SCH (22:22)
[2017-08-23] MEDS: GABAPENTIN 400 MG CAPSULE PO SCH (22:25)
[2017-08-23] MEDS ORDERED: POLYETHYLENE GLYCOL 17 GM PACKET PO PRN (22:30)
[2017-08-23] MEDS ORDERED: ONDANSETRON 2MG/ML, 2ML IVPush PRN (22:30)
[2017-08-23] MEDS ORDERED: hydrALAzine 20 MG/ML, 1ML IVPush PRN (22:30)
[2017-08-23] MEDS: INSULIN LISPRO 100 UNITS/ML, PEN SQ-INSULIN SCH (22:30)
[2017-08-23] MEDS ORDERED: INSULIN HUMULIN 70/30, 3ML PEN SQ-INSULIN PRN (22:30)
[2017-08-23] MEDS ORDERED: DOCUSATE 100 MG CAPSULE PO PRN (22:30)
[2017-08-23] MEDS ORDERED: HYDROcodone/APAP 5/325 TABLET PO PRN (22:30)
[2017-08-23] MEDS ORDERED: ACETAMINOPHEN 325 MG TABLET PO PRN (22:30)
[2017-08-23] MEDS ORDERED: NITROGLYCERIN 0.4 MG BOTTLE (25 TABS) SL PRN (22:30)
[2017-08-23] MEDS ORDERED: morphine SULFATE 10 MG/ML, 1ML IVPush PRN (22:30)
[2017-08-23 23:32] VITALS: BP 114/78
[2017-08-24] VITALS: BP 114/78
[2017-08-24] MEDS: HEPARIN 5,000 UNITS/ML, 1ML SQ SCH ×3 (00:03→17:05)
[2017-08-24 02:26] LABS: BASOPHILS % (AUTO) 1 % (0-1); EOSINOPHILS # (AUTO) 0.27 x10^3/uL (0-0.4); EOSINOPHILS % (AUTO) 2 % (1-7); LYMPHOCYTES # (AUTO) 1.81 x10^3/uL (1-3.4); LYMPHOCYTES % (AUTO) 16 % (22-44); MD NO; MEAN CORPUSCULAR HEMOGLOBIN 28.1 pg (27.0-34.8); MEAN CORPUSCULAR HGB CONC 31.9 g/dL (32.4-35.8); MEAN CORPUSCULAR VOLUME 88.1 fL (80-100); MEAN PLATELET VOLUME 9.3 fL (7.4-10.4); MONOCYTES % (AUTO) 8 % (2-9); NEUTROPHILS # (AUTO) 8.51 x10^3/uL (1.8-6.8); NEUTROPHILS % (AUTO) 74 % (42-75); PLATELET COUNT 162 x10^3/uL (130-400); RED BLOOD COUNT 4.17 x10^6/uL (3.82-5.3); RED CELL DISTRIBUTION WIDTH 21.5 % (9.6-15.2)
[2017-08-24 02:34] LABS: ANION GAP 12 mmol/L (5-15); CALCIUM 8.3 mg/dL (8.5-10.1); CHLORIDE 104 mmol/L (98-107); CREATININE 0.95 mg/dL (0.55-1.02)
[2017-08-24 02:41] LABS: TROPONIN I 0.046 ng/mL (0.000-0.045)
[2017-08-24] MEDS: LEVOTHYROXINE 88 MCG TABLET PO SCH (04:13)
[2017-08-24 07:19] VITALS: BP 105/74
[2017-08-24] MEDS: FUROSEMIDE 40 MG/4 ML IV SCH ×2 (08:43→17:04)
[2017-08-24] MEDS: ALLOPURINOL 300 MG TABLET PO SCH (08:46)
[2017-08-24] MEDS: ASPIRIN 81 MG TABLET EC PO SCH (08:46)
[2017-08-24] MEDS: GABAPENTIN 400 MG CAPSULE PO SCH ×3 (08:46→20:33)
[2017-08-24] MEDS: METOPROLOL SUCCINATE 25 MG TAB.ER.24H PO SCH (08:46)
[2017-08-24] MEDS: TEMPLATE NON-FORMULARY MED. (Linagliptin** (Tradjenta**) 5 MG) HOMEMEDPO SCH (08:47)
[2017-08-24 08:53] LABS: TROPONIN I 0.033 ng/mL (0.000-0.045)
[2017-08-24 09:47] VITALS: BP 130/85
[2017-08-24] MEDS: NYSTATIN TOPICAL POWDER 15GM TP SCH ×2 (09:47→20:33)
[2017-08-24] MEDS: MAGNESIUM CHLORIDE 64 MG TABLET.DR PO SCH ×2 (09:47→20:32)
[2017-08-24] MEDS: LISINOPRIL 5 MG TABLET PO SCH (09:48)
[2017-08-24] MEDS: INSULIN LISPRO 100 UNITS/ML, PEN SQ-INSULIN SCH ×4 (09:48→23:08)
[2017-08-24] MEDS ORDERED: LISI5TAB7 PO (09:51)
[2017-08-24 12:51] VITALS: BP 100/68
[2017-08-24 20:25] VITALS: BP 106/73
[2017-08-24] MEDS: ATORVASTATIN 10 MG TABLET PO SCH (20:32)
[2017-08-25] MEDS: HEPARIN 5,000 UNITS/ML, 1ML SQ SCH ×3 (00:28→17:18)
[2017-08-25 00:29] VITALS: BP 96/59
[2017-08-25 00:37] VITALS: BP 101/63
[2017-08-25] MEDS: LEVOTHYROXINE 88 MCG TABLET PO SCH (05:28)
[2017-08-25] MEDS: INSULIN LISPRO 100 UNITS/ML, PEN SQ-INSULIN SCH ×4 (07:00→20:47)
[2017-08-25 07:15] VITALS: BP 103/66
[2017-08-25] MEDS: TEMPLATE NON-FORMULARY MED. (Linagliptin** (Tradjenta**) 5 MG) HOMEMEDPO SCH (09:00)
[2017-08-25] MEDS: FUROSEMIDE 40 MG/4 ML IV SCH ×2 (09:21→17:12)
[2017-08-25] MEDS: MAGNESIUM CHLORIDE 64 MG TABLET.DR PO SCH ×2 (09:24→20:30)
[2017-08-25] MEDS: ASPIRIN 81 MG TABLET EC PO SCH (09:25)
[2017-08-25] MEDS: GABAPENTIN 400 MG CAPSULE PO SCH ×3 (09:25→20:30)
[2017-08-25] MEDS: METOPROLOL SUCCINATE 25 MG TAB.ER.24H PO SCH (09:25)
[2017-08-25] MEDS: ALLOPURINOL 300 MG TABLET PO SCH (09:25)
[2017-08-25 10:49] LABS: BASOPHILS # (AUTO) 0.07 x10^3/uL (0-0.1); BASOPHILS % (AUTO) 1 % (0-1); EOSINOPHILS # (AUTO) 0.24 x10^3/uL (0-0.4); EOSINOPHILS % (AUTO) 2 % (1-7); LYMPHOCYTES # (AUTO) 1.35 x10^3/uL (1-3.4); LYMPHOCYTES % (AUTO) 12 % (22-44); MD NO; MEAN CORPUSCULAR HEMOGLOBIN 28.5 pg (27.0-34.8); MEAN CORPUSCULAR HGB CONC 32.4 g/dL (32.4-35.8); MEAN CORPUSCULAR VOLUME 88.2 fL (80-100); MEAN PLATELET VOLUME 9.1 fL (7.4-10.4); MONOCYTES # (AUTO) 0.84 x10^3/uL (0.2-0.8); MONOCYTES % (AUTO) 8 % (2-9); NEUTROPHILS # (AUTO) 8.55 x10^3/uL (1.8-6.8); NEUTROPHILS % (AUTO) 77 % (42-75); PLATELET COUNT 174 x10^3/uL (130-400); RED BLOOD COUNT 4.27 x10^6/uL (3.82-5.3); RED CELL DISTRIBUTION WIDTH 20.6 % (9.6-15.2)
[2017-08-25 10:57] LABS: ALBUMIN 3.1 g/dL (3.4-5.0); ANION GAP 7 mmol/L (5-15); CALCIUM 8.3 mg/dL (8.5-10.1); CHLORIDE 102 mmol/L (98-107)
[2017-08-25 11:00] LABS: ALANINE AMINOTRANSFERASE 31 U/L (12-78); ALKALINE PHOSPHATASE 111 U/L (45-117); BILIRUBIN,TOTAL 2.6 mg/dL (0.2-1.0); CREATININE 1.12 mg/dL (0.55-1.02); TOTAL PROTEIN 6.4 g/dL (6.4-8.2)
[2017-08-25 12:32] VITALS: BP 106/72
[2017-08-25] MEDS: NYSTATIN TOPICAL POWDER 15GM TP SCH ×2 (12:32→20:30)
[2017-08-25] MEDS: LISINOPRIL 5 MG TABLET PO SCH (12:33)
[2017-08-25 13:43] VITALS: BP 111/67
[2017-08-25] MEDS: methylPREDNISolone SOD SUCC 125 MG/2 ML IVPush SCH (17:10)
[2017-08-25] MEDS: POTASSIUM CHLORIDE 20 MEQ TAB.ER.PRT PO SCH (17:12)
[2017-08-25 19:45] VITALS: BP 105/74
[2017-08-25] MEDS: ATORVASTATIN 10 MG TABLET PO SCH (20:30)
[2017-08-26] MEDS: HEPARIN 5,000 UNITS/ML, 1ML SQ SCH ×4 (00:05→23:35)
[2017-08-26] MEDS: methylPREDNISolone SOD SUCC 125 MG/2 ML IVPush SCH ×4 (00:05→23:35)
[2017-08-26 03:19] VITALS: BP 133/78
[2017-08-26 05:15] LABS: BASOPHILS % (AUTO) 0 % (0-1); EOSINOPHILS % (AUTO) 0 % (1-7); LYMPHOCYTES # (AUTO) 0.48 x10^3/uL (1-3.4); LYMPHOCYTES % (AUTO) 9 % (22-44); MD NO; MEAN CORPUSCULAR HEMOGLOBIN 28.7 pg (27.0-34.8); MEAN CORPUSCULAR HGB CONC 32.7 g/dL (32.4-35.8); MEAN CORPUSCULAR VOLUME 87.8 fL (80-100); MEAN PLATELET VOLUME 9.3 fL (7.4-10.4); MONOCYTES # (AUTO) 0.08 x10^3/uL (0.2-0.8); MONOCYTES % (AUTO) 1 % (2-9); NEUTROPHILS # (AUTO) 5.03 x10^3/uL (1.8-6.8); NEUTROPHILS % (AUTO) 90 % (42-75); PLATELET COUNT 164 x10^3/uL (130-400); RED BLOOD COUNT 3.95 x10^6/uL (3.82-5.3); RED CELL DISTRIBUTION WIDTH 20.8 % (9.6-15.2)
[2017-08-26 05:20] LABS: CHLORIDE 102 mmol/L (98-107)
[2017-08-26 05:28] LABS: ALANINE AMINOTRANSFERASE 27 U/L (12-78); ALBUMIN 2.9 g/dL (3.4-5.0); ALKALINE PHOSPHATASE 106 U/L (45-117); ANION GAP 10 mmol/L (5-15); CALCIUM 8.2 mg/dL (8.5-10.1); CREATININE 1.23 mg/dL (0.55-1.02); TOTAL PROTEIN 6.2 g/dL (6.4-8.2)
[2017-08-26] MEDS: LEVOTHYROXINE 88 MCG TABLET PO SCH (08:41)
[2017-08-26] MEDS: MAGNESIUM CHLORIDE 64 MG TABLET.DR PO SCH ×2 (08:42→21:01)
[2017-08-26] MEDS: GABAPENTIN 400 MG CAPSULE PO SCH ×3 (08:42→21:01)
[2017-08-26] MEDS: ALLOPURINOL 300 MG TABLET PO SCH (08:42)
[2017-08-26] MEDS: METOPROLOL SUCCINATE 25 MG TAB.ER.24H PO SCH (08:42)
[2017-08-26] MEDS: LISINOPRIL 5 MG TABLET PO SCH (08:42)
[2017-08-26] MEDS: ASPIRIN 81 MG TABLET EC PO SCH (08:42)
[2017-08-26] MEDS: TEMPLATE NON-FORMULARY MED. (Linagliptin** (Tradjenta**) 5 MG) HOMEMEDPO SCH (08:44)
[2017-08-26] MEDS: NYSTATIN TOPICAL POWDER 15GM TP SCH ×2 (08:44→21:02)
[2017-08-26] MEDS: POTASSIUM CHLORIDE 20 MEQ TAB.ER.PRT PO SCH (08:44)
[2017-08-26 08:45] VITALS: BP 109/67
[2017-08-26] MEDS: INSULIN LISPRO 100 UNITS/ML, PEN SQ-INSULIN SCH ×4 (08:56→21:24)
[2017-08-26] MEDS: FUROSEMIDE 40 MG TABLET PO SCH ×2 (09:24→17:35)
[2017-08-26] MEDS: GUAIFENESIN 200 MG TABLET PO SCH ×3 (12:49→21:02)
[2017-08-26 15:39] VITALS: BP 93/55
[2017-08-26 19:39] VITALS: BP 122/62
[2017-08-26] MEDS: ATORVASTATIN 10 MG TABLET PO SCH (21:01)
[2017-08-27 01:22] VITALS: BP 119/80
[2017-08-27 05:34] LABS: ALANINE AMINOTRANSFERASE 36 U/L (12-78); ALBUMIN 3.2 g/dL (3.4-5.0); ANION GAP 8 mmol/L (5-15); CALCIUM 8.6 mg/dL (8.5-10.1); CHLORIDE 102 mmol/L (98-107); CREATININE 1.21 mg/dL (0.55-1.02)
[2017-08-27 05:36] LABS: BASOPHILS % (AUTO) 0 % (0-1); EOSINOPHILS % (AUTO) 0 % (1-7); LYMPHOCYTES # (AUTO) 0.59 x10^3/uL (1-3.4); LYMPHOCYTES % (AUTO) 5 % (22-44); MD NO; MEAN CORPUSCULAR HEMOGLOBIN 28.8 pg (27.0-34.8); MEAN CORPUSCULAR HGB CONC 32.4 g/dL (32.4-35.8); MEAN PLATELET VOLUME 9.6 fL (7.4-10.4); MONOCYTES # (AUTO) 0.28 x10^3/uL (0.2-0.8); MONOCYTES % (AUTO) 3 % (2-9); NEUTROPHILS # (AUTO) 10.19 x10^3/uL (1.8-6.8); NEUTROPHILS % (AUTO) 92 % (42-75); PLATELET COUNT 175 x10^3/uL (130-400); RED BLOOD COUNT 4.09 x10^6/uL (3.82-5.3); RED CELL DISTRIBUTION WIDTH 20.7 % (9.6-15.2)
[2017-08-27 05:37] LABS: ALKALINE PHOSPHATASE 102 U/L (45-117); BILIRUBIN,TOTAL 1.6 mg/dL (0.2-1.0); TOTAL PROTEIN 6.4 g/dL (6.4-8.2)
[2017-08-27 07:03] VITALS: BP 94/62
[2017-08-27] MEDS ORDERED: POTASSIUM CHLORIDE 20 MEQ PACKET PO SCH (08:00)
[2017-08-27] MEDS: INSULIN LISPRO 100 UNITS/ML, PEN SQ-INSULIN SCH ×2 (09:05→11:34)
[2017-08-27] MEDS: FUROSEMIDE 40 MG TABLET PO SCH (09:07)
[2017-08-27] MEDS: methylPREDNISolone SOD SUCC 125 MG/2 ML IVPush SCH (09:07)
[2017-08-27] MEDS: GUAIFENESIN 200 MG TABLET PO SCH (09:07)
[2017-08-27] MEDS: LEVOTHYROXINE 88 MCG TABLET PO SCH (09:07)
[2017-08-27] MEDS: TEMPLATE NON-FORMULARY MED. (Linagliptin** (Tradjenta**) 5 MG) HOMEMEDPO SCH (09:08)
[2017-08-27] MEDS: GABAPENTIN 400 MG CAPSULE PO SCH (09:08)
[2017-08-27] MEDS: ASPIRIN 81 MG TABLET EC PO SCH (09:08)
[2017-08-27] MEDS: LISINOPRIL 5 MG TABLET PO SCH (09:08)
[2017-08-27] MEDS: MAGNESIUM CHLORIDE 64 MG TABLET.DR PO SCH (09:08)
[2017-08-27] MEDS: HEPARIN 5,000 UNITS/ML, 1ML SQ SCH (09:08)
[2017-08-27] MEDS: NYSTATIN TOPICAL POWDER 15GM TP SCH (09:09)
[2017-08-27] MEDS: METOPROLOL SUCCINATE 25 MG TAB.ER.24H PO SCH (09:09)
[2017-08-27] MEDS: ALLOPURINOL 300 MG TABLET PO SCH (09:09)
[2017-08-27 09:12] VITALS: BP 103/67
[2017-08-27 13:33] VITALS: BP 98/66
[2017-08-27] MEDS ORDERED: POTA10TA5 PO (13:35)
[2017-08-27] MEDS ORDERED: PRED20TA PO (13:39)
[2017-08-28] MEDS ORDERED: POTASSIUM CHLORIDE 10 MEQ TABLET.ER PO SCH (08:00)
== END 2017-08-27 16:20 | disposition home or self-care (01) | DRG 291 ==
LOC: ED 21:53 → EDIP 21:55 → 5SO 23:06
PROVIDERS: ADMIT Internal Medicine; ATTEND Internal Medicine
DX: I13.0 Hypertensive heart and chronic kidney disease with heart failure and stage 1 through stage 4 chronic kidney disease, or unspecified chronic kidney disease (principal); J96.21 Acute and chronic respiratory failure with hypoxia; N17.9 Acute kidney failure, unspecified; E11.22 Type 2 diabetes mellitus with diabetic chronic kidney disease; I27.20 Pulmonary hypertension, unspecified; E66.01 Morbid (severe) obesity due to excess calories; I50.43 Acute on chronic combined systolic (congestive) and diastolic (congestive) heart failure; Z68.41 Body mass index [BMI] 40.0-44.9, adult; J44.1 Chronic obstructive pulmonary disease with (acute) exacerbation; E87.5 Hyperkalemia; I42.9 Cardiomyopathy, unspecified; E03.9 Hypothyroidism, unspecified; E87.6 Hypokalemia; H54.62 Unqualified visual loss, left eye, normal vision right eye; I25.10 Atherosclerotic heart disease of native coronary artery without angina pectoris; N18.2 Chronic kidney disease, stage 2 (mild); Z82.49 Family history of ischemic heart disease and other diseases of the circulatory system; Z86.14 Personal history of Methicillin resistant Staphylococcus aureus infection; Z87.891 Personal history of nicotine dependence; Z87.01 Personal history of pneumonia (recurrent); Z90.710 Acquired absence of both cervix and uterus; Z90.721 Acquired absence of ovaries, unilateral; Z95.810 Presence of automatic (implantable) cardiac defibrillator; Z99.81 Dependence on supplemental oxygen
CPT/HCPCS: 36415; 71045; 80048; 80053; 82962; 83735; 83880; 84100; 84484; 85025; 87070; 87205; 93005; 96374; J1644; J1940; J2405; J1815; J2930; J7512